=== PATIENT | female | born 1935 | race Caucasian/White ===

== ENCOUNTER 2023-08-29 21:00 | Inpatient (IN) ==
[2023-08-29] MEDS: Lactated Ringers 1000 ml BAG 1,000 ML IV ONE (21:58)
[2023-08-29] MEDS: Albuterol 2.5mg/3 ml (0.083%) NEB.SOLN INH ONE (22:05)
[2023-08-29 22:22] LABS: PCO2 Arterial 38 mmHg (35-45); PO2 Arterial 84 mmHg (80-100)
[2023-08-29 22:35] LABS: ABS Eosinophils 0.1 10^3/uL (0.0-0.5); ABS Lymphocytes 0.6 10^3/uL (1.0-4.8); ABS Monocytes 0.8 10^3/uL (0.0-0.9); ABS Neutrophils 5.5 10^3/uL (1.5-7.6); ABS Nucleated RBC 0.01 10^3/ul; Eosinophil % 1.2 %; Hematocrit 35.4 % (35-45); Hemoglobin 11.6 g/dL (11.5-14.3); Lymphocyte % 8.4 %; Mean Corpuscular Hemoglobin 28.8 pg (27-33); Mean Corpuscular Hgb Conc 32.8 g/dL (31-36); Mean Corpuscular Volume 87.9 fL (80-97); Mean Platelet Volume 8.8 fL (7.5-11.2); Nucleated Red Blood Cells % 0.1 %/100WBC (0.0-0.8); Platelet Count 373 10^3/uL (150-450); Red Blood Count 4.03 10^6/uL (3.63-4.92); Red Cell Distribution Width 15.6 % (12-17)
[2023-08-29 22:48] LABS: Albumin 3.6 g/dL (3.2-5.2); Albumin/Globulin Ratio 1.2 (1-3); C Reactive Protein 19.55 mg/L (<8.01); Calcium 8.2 mg/dL (8.6-10.3); Creatinine, Serum 0.58 mg/dL (0.51-0.95); Globulin 2.9 g/dL (2-4); Potassium 4.5 mmol/L (3.5-5.0); Total Bilirubin 0.5 mg/dL (0.2-1.0); Total Protein 6.5 g/dL (6.4-8.9); eGFR CKD-EPI 88.1 (>60)
[2023-08-30] MEDS: Iodixanol (CONTRAST) 320 MG/ML 100 ML SDV IV ONE
[2023-08-30] MEDS ORDERED: Polyethylene Glycol 3350 17 GM PACKET PO PRN (03:35)
[2023-08-30] MEDS ORDERED: Senna TAB 8.6 mg TAB PO PRN (03:35)
[2023-08-30] MEDS ORDERED: Ondansetron 4 mg VIAL 2 MG/ML 2 ml VIAL IV PRN (03:35)
[2023-08-30] MEDS: cefTRIAXone 1 gm/50 mL D5W 1 GM/50 ML BAG IV ONE (03:43)
[2023-08-30] MEDS: Azithromycin 500 mg/250 ml NS 500 MG/250 ML BAG IVPB ONE (04:57)
[2023-08-30 06:12] LABS: Urine Specific Gravity >1.050 (1.002-1.030)
[2023-08-30 06:15] LABS: High Sensitivity Troponin 1 Hr 7 pg/mL (<15); Urine Appearance Clear; Urine Bacteria Absent /HPF (Absent); Urine Bilirubin Negative (Negative); Urine Blood Negative (Negative); Urine Color Yellow; Urine Glucose Negative (Negative); Urine Ketones Negative (Negative); Urine Nitrite Negative (Negative); Urine Protein 1+ (>=30 mg/dL) (Negative); Urine Red Blood Cell Absent /HPF (0-Trace); Urine Squamous Epithelial Cell Present /HPF (Absent); Urine Urobilinogen Negative (Negative); Urine White Blood Cell Absent /HPF (0-Trace)
[2023-08-30] MEDS: Lactated Ringers 1000 ml BAG 1,000 ML IV ONE (07:12)
[2023-08-30] MEDS: Famotidine SUSP ORALSYR 8 MG/ML PO SCH (10:12)
[2023-08-30] MEDS: levETIRAcetam LIQ 500 MG/5 ML UDC PO SCH (10:12)
[2023-08-30] MEDS: Latanoprost 0.005% 2.5 ml BTL BOTH EYES SCH (15:33)
[2023-08-31] MEDS: cefTRIAXone 1 gm/50 mL D5W 1 GM/50 ML BAG IV SCH (05:08)
[2023-08-31] MEDS: Azithromycin 500 mg/250 ml NS 500 MG/250 ML BAG IVPB SCH (05:48)
[2023-08-31 06:18] LABS: ABS Lymphocytes 0.7 10^3/uL (1.0-4.8); ABS Monocytes 0.7 10^3/uL (0.0-0.9); ABS Neutrophils 4.1 10^3/uL (1.5-7.6); Eosinophil % 0.2 %; Hematocrit 34.3 % (35-45); Hemoglobin 11.5 g/dL (11.5-14.3); Lymphocyte % 12.2 %; Mean Corpuscular Hemoglobin 29.9 pg (27-33); Mean Corpuscular Hgb Conc 33.7 g/dL (31-36); Mean Corpuscular Volume 88.8 fL (80-97); Mean Platelet Volume 8.3 fL (7.5-11.2); Nucleated Red Blood Cells % 0.1 %/100WBC (0.0-0.8); Platelet Count 353 10^3/uL (150-450); Red Blood Count 3.86 10^6/uL (3.63-4.92); Red Cell Distribution Width 15.3 % (12-17); White Blood Count 5.5 10^3/uL (3.8-11.8)
[2023-08-31 06:48] LABS: Calcium 8.3 mg/dL (8.6-10.3); Creatinine, Serum 0.59 mg/dL (0.51-0.95); Potassium 4.5 mmol/L (3.5-5.0); eGFR CKD-EPI 87.7 (>60)
[2023-08-31] MEDS ORDERED: Senna TAB 8.6 mg TAB PEG TUBE PRN (08:04)
[2023-08-31] MEDS ORDERED: Polyethylene Glycol 3350 17 GM PACKET PEG TUBE PRN (08:04)
[2023-08-31] MEDS: Famotidine SUSP ORALSYR 8 MG/ML PEG TUBE SCH (10:51)
[2023-08-31] MEDS: levETIRAcetam LIQ 500 MG/5 ML UDC PEG TUBE SCH (10:51)
[2023-08-31] MEDS: Scopolamine 1 mg/72hr PATCH TRANSDERM SCH (13:52)
[2023-08-31 15:11] LABS: Magnesium 2.1 mg/dL (1.9-2.7)
[2023-08-31] MEDS ORDERED: Metoprolol Tartrate 5 mg VIAL 5 ml VIAL (1 mg/ml) IV PRN ×2 (16:11→16:30)
[2023-08-31] MEDS: Metoprolol Tartrate 5 mg VIAL 5 ml VIAL (1 mg/ml) IV PRN (16:54)
[2023-08-31] MEDS: Albuterol/Ipratropium NEB.SOL (2.5/0.5 MG) 3 ML NEB.SOLN INH ONE (17:25)
[2023-09-01 06:52] LABS: Calcium 8.1 mg/dL (8.6-10.3); Creatinine, Serum 0.53 mg/dL (0.51-0.95); Potassium 4.2 mmol/L (3.5-5.0)
[2023-09-01] MEDS: Levalbuterol 0.63MG/3ML NEB UNIT OF USE INH PRN (12:18)
[2023-09-01] MEDS: Acetylcysteine INHALATION SOL 200 MG/ML NEB.SOLN 10 ML INH ONE (12:18)
[2023-09-01] MEDS ORDERED: Sulfur Hexaflouride MICROSPHR 25 MG VIAL ONE (13:01)
[2023-09-01] MEDS: Sulfur Hexaflouride MICROSPHR 25 MG VIAL IV ONE (14:43)
[2023-09-01] MEDS: Furosemide 20 mg/2 ml IV VIAL IV ONE (17:04)
[2023-09-01] MEDS ORDERED: Acetylcysteine INH SOL (RT) 200 MG/ML 4 ML VIAL INH PRN (18:00)
[2023-09-02 07:04] LABS: Calcium 8.1 mg/dL (8.6-10.3); Creatinine, Serum 0.52 mg/dL (0.51-0.95); Potassium 3.9 mmol/L (3.5-5.0); eGFR CKD-EPI 90.4 (>60)
[2023-09-02] MEDS: KCL 10 MEQ/50 ML IVPREMIX 10 MEQ/50 ML BAG IV ONE (14:28)
[2023-09-03 06:42] LABS: Calcium 8.1 mg/dL (8.6-10.3); Creatinine, Serum 0.52 mg/dL (0.51-0.95); eGFR CKD-EPI 90.4 (>60)
[2023-09-04 13:17] LABS: Hematocrit 37.6 % (35-45); Hemoglobin 12.6 g/dL (11.5-14.3); Mean Corpuscular Hemoglobin 29.2 pg (27-33); Mean Corpuscular Hgb Conc 33.4 g/dL (31-36); Mean Corpuscular Volume 87.3 fL (80-97); Mean Platelet Volume 8.1 fL (7.5-11.2); Platelet Count 423 10^3/uL (150-450); Red Blood Count 4.31 10^6/uL (3.63-4.92); Red Cell Distribution Width 14.6 % (12-17); White Blood Count 6.8 10^3/uL (3.8-11.8)
[2023-09-04] MEDS: cefTRIAXone 1 gm/50 mL D5W 1 GM/50 ML BAG IV SCH (13:59)
[2023-09-05] MEDS: Metoprolol Tartrate 5 mg VIAL 5 ml VIAL (1 mg/ml) IV PRN (20:36)
[2023-09-08 10:00] VITALS: BP 132/91
== END 2023-09-08 13:57 | DRG 189 ==
LOC: ED 21:00 → EDHOLD 08-30 03:35 → SUATTDRO 08-30 03:35 → MED 08-30 07:42
PROVIDERS: ADMIT Internal Medicine; ATTEND Internal Medicine

== ENCOUNTER 2023-09-12 13:23 | Inpatient (IN) ==
[2023-09-12 14:09] LABS: ABS Basophils 0.1 10^3/uL (0.0-0.1); ABS Eosinophils 0.2 10^3/uL (0.0-0.5); ABS Lymphocytes 1.4 10^3/uL (1.0-4.8); ABS Monocytes 0.9 10^3/uL (0.0-0.9); ABS Neutrophils 11.2 10^3/uL (1.5-7.6); ABS Nucleated RBC 0.01 10^3/ul; Eosinophil % 1.4 %; Hematocrit 41.3 % (35-45); Hemoglobin 13.6 g/dL (11.5-14.3); Lymphocyte % 10.2 %; Mean Corpuscular Hemoglobin 28.7 pg (27-33); Mean Platelet Volume 8.4 fL (7.5-11.2); Platelet Count 428 10^3/uL (150-450); Red Blood Count 4.74 10^6/uL (3.63-4.92); Red Cell Distribution Width 14.9 % (12-17); White Blood Count 13.8 10^3/uL (3.8-11.8)
[2023-09-12 14:22] LABS: Activated Partial Thrombo Time 29.9 seconds (26.0-38.0); INR 1.05 (0.83-1.13)
[2023-09-12] MEDS: Iodixanol (CONTRAST) 320 MG/ML 100 ML SDV IV ONE (14:28)
[2023-09-12 14:54] LABS: Albumin 3.7 g/dL (3.2-5.2); Albumin/Globulin Ratio 1.3 (1-3); Calcium 8.7 mg/dL (8.6-10.3); Creatinine, Serum 0.65 mg/dL (0.51-0.95); Direct Bilirubin 0.1 mg/dL (0.03-0.18); Globulin 2.8 g/dL (2-4); HDL Cholesterol 34.9 mg/dL; Indirect Bilirubin 0.5 mg/dL (0.3-1.0); Potassium 4.8 mmol/L (3.5-5.0); Total Bilirubin 0.6 mg/dL (0.2-1.0); Total Protein 6.5 g/dL (6.4-8.9); eGFR CKD-EPI 85.7 (>60)
[2023-09-12] MEDS: Dexamethasone IV 4 MG/ML 5 ML VIAL (20 MG) IVPB ONE (15:33)
[2023-09-12 15:55] LABS: Venous Bicarbonate HCO3 28.1 mmol/L (24-28)
[2023-09-12] MEDS ORDERED: Zosyn per Pharmacy NOTE FOLLOW UP SCH (18:00)
[2023-09-12 19:06] LABS: Urine Appearance Clear; Urine Bacteria Absent /HPF (Absent); Urine Bilirubin Negative (Negative); Urine Blood Negative (Negative); Urine Color Yellow; Urine Glucose Negative (Negative); Urine Ketones Negative (Negative); Urine Nitrite Negative (Negative); Urine Protein 1+ (>=30 mg/dL) (Negative); Urine Red Blood Cell Trace(0-2/hpf) /HPF (0-Trace); Urine Specific Gravity >1.050 (1.002-1.030); Urine Squamous Epithelial Cell Present /HPF (Absent); Urine Urobilinogen 1+ (Negative); Urine White Blood Cell Trace(0-5/hpf) /HPF (0-Trace); Urine pH 7.5 (5.0-8.0)
[2023-09-12] MEDS: Piperacillin/Tazobac 3.375 BAG 3.375 GM/100 ML BAG IV ONE (19:20)
[2023-09-12] MEDS: NS 0.9% 1000 ml BAG 1,000 ML IV SCH (20:26)
[2023-09-12] MEDS: ZOSYN 3.375 GM Q8H per EXTENDED INFUSION IV SCH (23:36)
[2023-09-13] MEDS: Acetaminophen IV 1 GM/100ML 1,000 MG/100 ML BAG IV PRN (06:06)
[2023-09-13 06:22] LABS: ABS Lymphocytes 0.7 10^3/uL (1.0-4.8); ABS Monocytes 0.2 10^3/uL (0.0-0.9); ABS Neutrophils 9.6 10^3/uL (1.5-7.6); Hematocrit 39.1 % (35-45); Hemoglobin 13.1 g/dL (11.5-14.3); Lymphocyte % 6.7 %; Mean Corpuscular Hemoglobin 29.8 pg (27-33); Mean Corpuscular Hgb Conc 33.5 g/dL (31-36); Mean Corpuscular Volume 88.9 fL (80-97); Mean Platelet Volume 8.9 fL (7.5-11.2); Platelet Count 367 10^3/uL (150-450); Red Cell Distribution Width 14.6 % (12-17); White Blood Count 10.6 10^3/uL (3.8-11.8)
[2023-09-13 06:24] LABS: Calcium 8.1 mg/dL (8.6-10.3); Creatinine, Serum 0.65 mg/dL (0.51-0.95); Magnesium 2.1 mg/dL (1.9-2.7); Potassium 4.8 mmol/L (3.5-5.0); eGFR CKD-EPI 85.7 (>60)
[2023-09-13] MEDS: levETIRAcetam LIQ 500 MG/5 ML UDC FEED TUBE SCH (09:34)
[2023-09-13] MEDS: Latanoprost 0.005% 2.5 ml BTL BOTH EYES SCH (09:35)
[2023-09-13] MEDS: Famotidine SUSP ORALSYR 8 MG/ML FEED TUBE SCH (09:35)
[2023-09-13] MEDS: Sulfur Hexaflouride MICROSPHR 25 MG VIAL IV ONE (17:17)
[2023-09-13] MEDS: Albuterol/Ipratropium NEB.SOL (2.5/0.5 MG) 3 ML NEB.SOLN INH PRN (19:19)
[2023-09-15 10:34] LABS: Body Fluid Total Nucleated 231 /mcL
[2023-09-15 10:42] LABS: C Reactive Protein 17.67 mg/L (<8.01)
[2023-09-15 11:05] LABS: Body Fluid Appearance Cloudy; Body Fluid Color Yellow; Body Fluid Source Pleural Fluid
[2023-09-15 11:52] LABS: Body Fluid Mono 14 %; Body Fluid Total Cells Counted 200
[2023-09-15 16:10] VITALS: BP 152/100
[2023-09-16 11:07] LABS: Lactate Dehydrogenase, BF 206 U/L
[2023-09-16 12:06] LABS: Albumin, BF 1.7 g/dL; Fluid Type, Albumin PLEURAL FLUID; Fluid Type, Protein, Total PLEURAL FLUID; Glucose, BF 116 mg/dL; Total Protein, BF 2.5 g/dL
== END 2023-09-15 16:20 | DRG 70 ==
LOC: ED 13:23 → EDHOLD 13:23 → INTOOBSV 16:05 → SUATTDRO 16:05 → OBSVTOIN 16:05 → MED 19:35 → SUATTDRO 09-13 08:00
PROVIDERS: ADMIT Internal Medicine; ATTEND Hospitalist

== ENCOUNTER 2023-10-15 13:05 | Inpatient (IN) ==
[2023-10-15 13:54] LABS: ABS Eosinophils 0.1 10^3/uL (0.0-0.5); ABS Lymphocytes 1.1 10^3/uL (1.0-4.8); ABS Monocytes 0.5 10^3/uL (0.0-0.9); ABS Neutrophils 5.5 10^3/uL (1.5-7.6); ABS Nucleated RBC 0.01 10^3/ul; Eosinophil % 1.9 %; Hematocrit 37.7 % (35-45); Hemoglobin 12.6 g/dL (11.5-14.3); Lymphocyte % 14.8 %; Mean Corpuscular Hemoglobin 29.3 pg (27-33); Mean Corpuscular Hgb Conc 33.4 g/dL (31-36); Mean Corpuscular Volume 87.9 fL (80-97); Mean Platelet Volume 8.7 fL (7.5-11.2); Nucleated Red Blood Cells % 0.2 %/100WBC (0.0-0.8); Platelet Count 405 10^3/uL (150-450); Red Blood Count 4.29 10^6/uL (3.63-4.92); Red Cell Distribution Width 14.5 % (12-17); White Blood Count 7.2 10^3/uL (3.8-11.8)
[2023-10-15 14:21] LABS: Activated Partial Thrombo Time 33.9 seconds (26.0-38.0); INR 1.05 (0.83-1.13)
[2023-10-15 14:28] LABS: Albumin 3.8 g/dL (3.2-5.2); Albumin/Globulin Ratio 1.4 (1-3); Calcium 9.1 mg/dL (8.6-10.3); Creatinine, Serum 0.61 mg/dL (0.51-0.95); Globulin 2.8 g/dL (2-4); Potassium 4.5 mmol/L (3.5-5.0); Total Bilirubin 0.6 mg/dL (0.2-1.0); Total Protein 6.6 g/dL (6.4-8.9)
[2023-10-15] MEDS: Glycerin ADULT 2.4 gm SUPP PR ONE (18:24)
[2023-10-15 18:32] LABS: Hematocrit 35.6 % (35-45); Hemoglobin 11.8 g/dL (11.5-14.3)
[2023-10-15] MEDS: Pantoprazole VIAL 40 MG VIAL IV ONE (20:20)
[2023-10-15] MEDS: Lactated Ringers 1000 ml BAG 1,000 ML IV SCH (22:57)
[2023-10-16 00:52] LABS: ABS Eosinophils 0.1 10^3/uL (0.0-0.5); ABS Lymphocytes 1.1 10^3/uL (1.0-4.8); ABS Monocytes 0.8 10^3/uL (0.0-0.9); Eosinophil % 1.6 %; Hematocrit 32.1 % (35-45); Lymphocyte % 15.9 %; Mean Corpuscular Hemoglobin 30.1 pg (27-33); Mean Corpuscular Hgb Conc 34.3 g/dL (31-36); Mean Corpuscular Volume 87.7 fL (80-97); Mean Platelet Volume 8.6 fL (7.5-11.2); Platelet Count 366 10^3/uL (150-450); Red Blood Count 3.66 10^6/uL (3.63-4.92); Red Cell Distribution Width 14.7 % (12-17)
[2023-10-16 05:31] LABS: ABS Basophils 0.1 10^3/uL (0.0-0.1); ABS Eosinophils 0.1 10^3/uL (0.0-0.5); ABS Monocytes 0.8 10^3/uL (0.0-0.9); ABS Neutrophils 7.1 10^3/uL (1.5-7.6); ABS Nucleated RBC 0.01 10^3/ul; Eosinophil % 1.1 %; Hemoglobin 10.6 g/dL (11.5-14.3); Mean Corpuscular Hemoglobin 29.1 pg (27-33); Mean Corpuscular Hgb Conc 33.2 g/dL (31-36); Mean Corpuscular Volume 87.7 fL (80-97); Mean Platelet Volume 8.6 fL (7.5-11.2); Nucleated Red Blood Cells % 0.1 %/100WBC (0.0-0.8); Platelet Count 356 10^3/uL (150-450); Red Blood Count 3.64 10^6/uL (3.63-4.92); Red Cell Distribution Width 14.8 % (12-17)
[2023-10-16 06:21] LABS: Calcium 8.5 mg/dL (8.6-10.3); Creatinine, Serum 0.61 mg/dL (0.51-0.95); Potassium 4.5 mmol/L (3.5-5.0)
[2023-10-16] MEDS: Pantoprazole VIAL 40 MG VIAL IV SCH (11:06)
[2023-10-16] MEDS: levETIRAcetam LIQ 500 MG/5 ML UDC FEED TUBE SCH (11:06)
[2023-10-16 11:42] LABS: Magnesium 1.7 mg/dL (1.9-2.7)
[2023-10-16] MEDS: Magnesium Sulfate IV 1GM/100ML 1 GM/100 ML BAG IV ONE (15:48)
[2023-10-16] MEDS: Magnesium Sulfate 2 gm BAG 2 GM/50 ML BAG IVPB ONE (16:36)
[2023-10-16] MEDS: Iohexol 350 (CONTRAST) 500 ML MDV IV ONE (19:20)
[2023-10-17 00:07] LABS: Hematocrit 30.3 % (35-45); Hemoglobin 10.3 g/dL (11.5-14.3)
[2023-10-17 06:15] LABS: ABS Eosinophils 0.1 10^3/uL (0.0-0.5); ABS Monocytes 0.5 10^3/uL (0.0-0.9); ABS Neutrophils 2.9 10^3/uL (1.5-7.6); Hematocrit 32.3 % (35-45); Hemoglobin 10.6 g/dL (11.5-14.3); Lymphocyte % 22.1 %; Mean Corpuscular Hemoglobin 28.9 pg (27-33); Mean Corpuscular Hgb Conc 32.9 g/dL (31-36); Mean Corpuscular Volume 87.9 fL (80-97); Mean Platelet Volume 8.8 fL (7.5-11.2); Nucleated Red Blood Cells % 0.1 %/100WBC (0.0-0.8); Platelet Count 337 10^3/uL (150-450); Red Blood Count 3.67 10^6/uL (3.63-4.92); Red Cell Distribution Width 15.1 % (12-17); White Blood Count 4.6 10^3/uL (3.8-11.8)
[2023-10-17 06:33] LABS: Calcium 8.2 mg/dL (8.6-10.3); Creatinine, Serum 0.68 mg/dL (0.51-0.95); Magnesium 2.5 mg/dL (1.9-2.7); eGFR CKD-EPI 84.8 (>60)
[2023-10-17] MEDS: Polyethylene Glycol 3350 17 GM PACKET FEED TUBE SCH (08:42)
[2023-10-18 05:39] LABS: ABS Eosinophils 0.2 10^3/uL (0.0-0.5); ABS Lymphocytes 1.1 10^3/uL (1.0-4.8); ABS Monocytes 0.7 10^3/uL (0.0-0.9); ABS Neutrophils 4.1 10^3/uL (1.5-7.6); ABS Nucleated RBC 0.01 10^3/ul; Eosinophil % 2.5 %; Hematocrit 32.7 % (35-45); Hemoglobin 10.7 g/dL (11.5-14.3); Lymphocyte % 17.5 %; Mean Corpuscular Hemoglobin 28.7 pg (27-33); Mean Corpuscular Hgb Conc 32.7 g/dL (31-36); Mean Corpuscular Volume 87.6 fL (80-97); Mean Platelet Volume 8.8 fL (7.5-11.2); Nucleated Red Blood Cells % 0.1 %/100WBC (0.0-0.8); Platelet Count 364 10^3/uL (150-450); Red Blood Count 3.74 10^6/uL (3.63-4.92); Red Cell Distribution Width 14.8 % (12-17)
[2023-10-18 05:58] LABS: Calcium 8.2 mg/dL (8.6-10.3); Creatinine, Serum 0.59 mg/dL (0.51-0.95); Magnesium 1.9 mg/dL (1.9-2.7); Potassium 4.2 mmol/L (3.5-5.0); eGFR CKD-EPI 87.7 (>60)
[2023-10-18 09:46] VITALS: BP 125/98
[2023-10-18] MEDS ORDERED: Lansoprazole SUSP ORALSYR 3 MG/ML PO SCH (21:00)
[2023-10-18] MEDS ORDERED: Enoxaparin 60 MG/0.6 ML SYR SUBCUT SCH (21:00)
== END 2023-10-18 13:13 | DRG 378 ==
LOC: ED 13:05 → EDHOLD 13:05 → SUATTDRO 21:04 → MEDTELE 10-16 14:04
PROVIDERS: ADMIT Internal Medicine; ATTEND Student in an Organized Health Care Education/Training Program

== ENCOUNTER 2023-12-21 10:47 | Inpatient (IN) ==
[2023-12-21 11:32] LABS: ABS Lymphocytes 0.9 10^3/uL (1.0-4.8); ABS Monocytes 0.9 10^3/uL (0.0-0.9); ABS Neutrophils 6.6 10^3/uL (1.5-7.6); ABS Nucleated RBC 0.01 10^3/ul; Hematocrit 34.5 % (35-45); Hemoglobin 11.6 g/dL (11.5-14.3); Lymphocyte % 10.2 %; Mean Corpuscular Hemoglobin 29.7 pg (27-33); Mean Corpuscular Hgb Conc 33.8 g/dL (31-36); Mean Corpuscular Volume 87.9 fL (80-97); Nucleated Red Blood Cells % 0.1 %/100WBC (0.0-0.8); Platelet Count 297 10^3/uL (150-450); Red Blood Count 3.92 10^6/uL (3.63-4.92); Red Cell Distribution Width 15.2 % (12-17); White Blood Count 8.4 10^3/uL (3.8-11.8)
[2023-12-21 11:48] LABS: Activated Partial Thrombo Time 25.8 seconds (26.0-38.0); INR 1.14 (0.85-1.14)
[2023-12-21] MEDS: methylPREDNISolone SOD SUCC 125 mg 2 ML VIAL IV ONE (11:54)
[2023-12-21] MEDS: Acetaminophen IV 1 GM/100ML 1,000 MG/100 ML BAG IV ONE (11:54)
[2023-12-21] MEDS: Azithromycin 500 mg/250 ml NS 500 MG/250 ML BAG IVPB ONE (12:11)
[2023-12-21 12:47] LABS: Albumin 3.6 g/dL (3.2-5.2); Albumin/Globulin Ratio 1.3 (1-3); C Reactive Protein 20.85 mg/L (<8.01); Calcium 8.1 mg/dL (8.6-10.3); Creatinine, Serum 0.82 mg/dL (0.51-0.95); Globulin 2.7 g/dL (2-4); Total Bilirubin 0.4 mg/dL (0.2-1.0); Total Protein 6.3 g/dL (6.4-8.9); eGFR CKD-EPI 69.6 (>60)
[2023-12-21 12:48] LABS: High Sensitivity Troponin 1 Hr 12 pg/mL (<15)
[2023-12-21 12:53] LABS: Potassium 4.4 mmol/L (3.5-5.0)
[2023-12-21] MEDS: cefTRIAXone 1 gm/50 mL D5W 1 GM/50 ML BAG IV ONE (12:54)
[2023-12-21] MEDS: NS 0.9% 500 ml BAG 500 ML IV ONE (13:31)
[2023-12-21] MEDS ORDERED: Zosyn per Pharmacy NOTE FOLLOW UP SCH (14:00)
[2023-12-21] MEDS ORDERED: Metoprolol Tartrate 5 mg VIAL 5 ml VIAL (1 mg/ml) IV PRN (14:04)
[2023-12-21] MEDS: ZOSYN 3.375 GM x ONE DOSE over 30 miuntes IV (14:18)
[2023-12-21] MEDS: metroNIDAZOLE IV 500 MG/100ML 500 MG/100 ML BAG IVPB ONE (14:42)
[2023-12-21] MEDS: NS 0.9% 1000 ml BAG 1,000 ML IV SCH (14:42)
[2023-12-21] MEDS ORDERED: Vancomycin per Pharmacy 1 EA NOTE FOLLOW UP SCH (15:00)
[2023-12-21] MEDS: Remdesivir 100 mg Vial 200 MG in NS 0.9% 250 ml 210 ML IV ONE (15:46)
[2023-12-21] MEDS: Dexamethasone IV 4 MG/ML VIAL 1 ml VIAL IV SLOW PU SCH (17:07)
[2023-12-21] MEDS: Lactated Ringers 1000 ml BAG 1,000 ML IV SCH (17:11)
[2023-12-21] MEDS: Vancomycin 1000 MG in NS 0.9% 250 ML IVPB ONE (18:05)
[2023-12-21] MEDS: ZOSYN 3.375 GM Q8H per EXTENDED INFUSION IV SCH (19:06)
[2023-12-21] MEDS: Famotidine IV 10 MG/ML 2 ml VIAL (20 mg) IV SLOW PU SCH (20:26)
[2023-12-21] MEDS: Acetaminophen IV 1 GM/100ML 1,000 MG/100 ML BAG IV PRN (22:39)
[2023-12-22] MEDS: Metoprolol Tartrate 5 mg VIAL 5 ml VIAL (1 mg/ml) IV PRN (00:12)
[2023-12-22 04:04] LABS: ABS Lymphocytes 0.6 10^3/uL (1.0-4.8); ABS Monocytes 0.3 10^3/uL (0.0-0.9); ABS Neutrophils 8.6 10^3/uL (1.5-7.6); ABS Nucleated RBC 0.01 10^3/ul; Hematocrit 29.7 % (35-45); Hemoglobin 10.1 g/dL (11.5-14.3); Lymphocyte % 5.9 %; Mean Platelet Volume 8.8 fL (7.5-11.2); Nucleated Red Blood Cells % 0.1 %/100WBC (0.0-0.8); Platelet Count 252 10^3/uL (150-450); Red Blood Count 3.37 10^6/uL (3.63-4.92); Red Cell Distribution Width 15.5 % (12-17); White Blood Count 9.5 10^3/uL (3.8-11.8)
[2023-12-22 04:53] LABS: Albumin 2.9 g/dL (3.2-5.2); Albumin/Globulin Ratio 1.3 (1-3); Calcium 7.3 mg/dL (8.6-10.3); Creatinine, Serum 0.67 mg/dL (0.51-0.95); Globulin 2.3 g/dL (2-4); Magnesium 1.7 mg/dL (1.9-2.7); Phosphorus 4.5 mg/dL (2.5-5.0); Potassium 3.4 mmol/L (3.5-5.0); Total Bilirubin 0.3 mg/dL (0.2-1.0); Total Protein 5.2 g/dL (6.4-8.9); eGFR CKD-EPI 85.1 (>60)
[2023-12-22] MEDS: Magnesium Sulfate 2 gm BAG 2 GM/50 ML BAG IVPB ONE (06:28)
[2023-12-22] MEDS: KCL 20 MEQ/100 ML IVPREMIX 20 MEQ/100 ML BAG IV SCH (07:21)
[2023-12-22] MEDS: Magnesium Sulfate IV 1GM/100ML 1 GM/100 ML BAG IV ONE (09:45)
[2023-12-22] MEDS: Vancomycin 1000 MG in NS 0.9% 250 ML IVPB SCH (12:57)
[2023-12-22] MEDS: Azithromycin 500 mg/250 ml NS 500 MG/250 ML BAG IVPB SCH (17:24)
[2023-12-22] MEDS: Erythromycin OPTH OINT APPLIC OINT LEFT EYE SCH (21:01)
[2023-12-22] MEDS: Remdesivir 100 mg Vial 100 MG in NS 0.9% 250 ml 230 ML IV SCH (21:35)
[2023-12-23 10:16] LABS: ABS Lymphocytes 0.6 10^3/uL (1.0-4.8); ABS Monocytes 0.4 10^3/uL (0.0-0.9); ABS Neutrophils 5.1 10^3/uL (1.5-7.6); Hematocrit 31.5 % (35-45); Hemoglobin 10.2 g/dL (11.5-14.3); Lymphocyte % 10.5 %; Mean Corpuscular Hemoglobin 28.3 pg (27-33); Mean Corpuscular Hgb Conc 32.4 g/dL (31-36); Mean Corpuscular Volume 87.3 fL (80-97); Platelet Count 272 10^3/uL (150-450); Red Blood Count 3.61 10^6/uL (3.63-4.92); Red Cell Distribution Width 15.5 % (12-17); White Blood Count 6.2 10^3/uL (3.8-11.8)
[2023-12-23 11:00] LABS: Calcium 7.3 mg/dL (8.6-10.3); Creatinine, Serum 0.63 mg/dL (0.51-0.95); Magnesium 2.2 mg/dL (1.9-2.7); Potassium 3.9 mmol/L (3.5-5.0); eGFR CKD-EPI 86.3 (>60)
[2023-12-23] MEDS: levETIRAcetam LIQ 500 MG/5 ML UDC FEED TUBE SCH (21:39)
[2023-12-24 06:58] LABS: ABS Lymphocytes 0.7 10^3/uL (1.0-4.8); ABS Monocytes 0.4 10^3/uL (0.0-0.9); ABS Neutrophils 3.4 10^3/uL (1.5-7.6); Hematocrit 29.4 % (35-45); Hemoglobin 9.8 g/dL (11.5-14.3); Lymphocyte % 14.9 %; Mean Corpuscular Hemoglobin 29.4 pg (27-33); Mean Corpuscular Hgb Conc 33.5 g/dL (31-36); Mean Corpuscular Volume 87.8 fL (80-97); Mean Platelet Volume 8.6 fL (7.5-11.2); Nucleated Red Blood Cells % 0.1 %/100WBC (0.0-0.8); Platelet Count 256 10^3/uL (150-450); Red Blood Count 3.35 10^6/uL (3.63-4.92); Red Cell Distribution Width 15.5 % (12-17); White Blood Count 4.6 10^3/uL (3.8-11.8)
[2023-12-24 07:35] LABS: Calcium 7.2 mg/dL (8.6-10.3); Creatinine, Serum 0.66 mg/dL (0.51-0.95); Potassium 3.7 mmol/L (3.5-5.0); eGFR CKD-EPI 85.4 (>60)
[2023-12-24 12:32] LABS: Creatinine, Serum 0.69 mg/dL (0.51-0.95); Vancomycin Trough 9.9 mcg/mL; eGFR CKD-EPI 84.5 (>60)
[2023-12-24] MEDS: Vancomycin Trough Check NOTE FOLLOW UP ONE (12:33)
[2023-12-24] MEDS: levETIRAcetam LIQ 500 MG/5 ML UDC FEED TUBE SCH (22:43)
[2023-12-25 05:54] LABS: ABS Lymphocytes 0.7 10^3/uL (1.0-4.8); ABS Monocytes 0.3 10^3/uL (0.0-0.9); ABS Neutrophils 2.9 10^3/uL (1.5-7.6); Eosinophil % 0.1 %; Hematocrit 31.8 % (35-45); Hemoglobin 10.7 g/dL (11.5-14.3); Lymphocyte % 18.2 %; Mean Corpuscular Hemoglobin 29.1 pg (27-33); Mean Corpuscular Hgb Conc 33.6 g/dL (31-36); Mean Corpuscular Volume 86.5 fL (80-97); Mean Platelet Volume 8.2 fL (7.5-11.2); Nucleated Red Blood Cells % 0.1 %/100WBC (0.0-0.8); Platelet Count 264 10^3/uL (150-450); Red Blood Count 3.68 10^6/uL (3.63-4.92); Red Cell Distribution Width 15.5 % (12-17)
[2023-12-25 07:46] LABS: Calcium 7.3 mg/dL (8.6-10.3); Creatinine, Serum 0.62 mg/dL (0.51-0.95); Magnesium 1.8 mg/dL (1.9-2.7); Potassium 3.7 mmol/L (3.5-5.0); eGFR CKD-EPI 86.1 (>60)
[2023-12-25] MEDS: levETIRAcetam LIQ 500 MG/5 ML UDC J TUBE SCH (09:29)
[2023-12-25] MEDS: Magnesium Sulfate 2 gm BAG 2 GM/50 ML BAG IVPB ONE (18:07)
[2023-12-26] MEDS: Vancomycin 750 MG in NS 0.9% 250 ML IVPB SCH (00:09)
[2023-12-26 06:35] LABS: Hematocrit 32.7 % (35-45); Hemoglobin 10.8 g/dL (11.5-14.3); Mean Corpuscular Hemoglobin 28.7 pg (27-33); Mean Platelet Volume 8.2 fL (7.5-11.2); Platelet Count 309 10^3/uL (150-450); Red Blood Count 3.76 10^6/uL (3.63-4.92); Red Cell Distribution Width 15.1 % (12-17); White Blood Count 6.9 10^3/uL (3.8-11.8)
[2023-12-26 06:52] LABS: Calcium 7.2 mg/dL (8.6-10.3); Creatinine, Serum 0.65 mg/dL (0.51-0.95); Magnesium 2.2 mg/dL (1.9-2.7); Potassium 3.9 mmol/L (3.5-5.0); eGFR CKD-EPI 85.2 (>60)
[2023-12-26 09:37] VITALS: BP 139/90
[2023-12-27] MEDS ORDERED: Vancomycin Trough Check NOTE FOLLOW UP ONE (11:30)
== END 2023-12-26 12:40 | DRG 871 ==
LOC: ED 10:47 → EDHOLD 13:38 → ICU 15:46 → MED 16:25
PROVIDERS: ADMIT Student in an Organized Health Care Education/Training Program; ATTEND Internal Medicine

== ENCOUNTER 2023-12-28 15:22 | Inpatient (IN) ==
[2023-12-28 16:18] LABS: ABS Eosinophils 0.2 10^3/uL (0.0-0.5); ABS Lymphocytes 0.9 10^3/uL (1.0-4.8); ABS Nucleated RBC 0.01 10^3/ul; Eosinophil % 1.4 %; Hematocrit 38.3 % (35-45); Hemoglobin 12.5 g/dL (11.5-14.3); Lymphocyte % 8.2 %; Mean Corpuscular Hemoglobin 28.3 pg (27-33); Mean Corpuscular Hgb Conc 32.8 g/dL (31-36); Mean Corpuscular Volume 86.3 fL (80-97); Mean Platelet Volume 8.1 fL (7.5-11.2); Nucleated Red Blood Cells % 0.1 %/100WBC (0.0-0.8); Platelet Count 425 10^3/uL (150-450); Red Blood Count 4.44 10^6/uL (3.63-4.92); Red Cell Distribution Width 15.7 % (12-17)
[2023-12-28 16:25] LABS: Activated Partial Thrombo Time 29.9 seconds (26.0-38.0); INR 1.1 (0.85-1.14)
[2023-12-28 16:30] LABS: Urine Appearance Clear; Urine Bilirubin Negative (Negative); Urine Blood Negative (Negative); Urine Color Yellow; Urine Glucose Negative (Negative); Urine Ketones Negative (Negative); Urine Nitrite Negative (Negative); Urine Protein Trace (Negative); Urine Specific Gravity 1.017 (1.002-1.030); Urine Urobilinogen 1+ (Negative); Urine pH 6.5 (5.0-8.0)
[2023-12-28 16:44] LABS: High Sens Troponin Baseline 10 pg/mL (<15)
[2023-12-28 16:47] LABS: Urine Bacteria 1+ /HPF (Absent); Urine Red Blood Cell Trace(0-2/hpf) /HPF (0-Trace); Urine Squamous Epithelial Cell Present /HPF (Absent); Urine White Blood Cell 3+(>20/hpf) /HPF (0-Trace)
[2023-12-28 17:08] LABS: ALT 50 U/L (7-52); Albumin 3.1 g/dL (3.2-5.2); Albumin/Globulin Ratio 1.1 (1-3); Alkaline Phosphatase 98 U/L (35-149); Anion Gap 6 mmol/L (2-16); Blood Urea Nitrogen 29 mg/dL (6-24); C Reactive Protein 58.82 mg/L (<8.01); CO2 Carbon Dioxide 29 mmol/L (22-32); Calcium 7.8 mg/dL (8.6-10.3); Chloride 102 mmol/L (101-111); Creatinine, Serum 0.63 mg/dL (0.51-0.95); Globulin 2.7 g/dL (2-4); Glucose 105 mg/dL (70-100); Sodium 137 mmol/L (135-145); Total Bilirubin 0.7 mg/dL (0.2-1.0); Total Protein 5.8 g/dL (6.4-8.9); eGFR CKD-EPI 85.8 (>60)
[2023-12-28 17:41] LABS: Potassium Redraw 4.7 mmol/L (3.5-5.0)
[2023-12-28] MEDS: Piperacillin/Tazobac 3.375 BAG 3.375 GM/100 ML BAG IV ONE (17:53)
[2023-12-28] MEDS: Lactated Ringers 1000 ml BAG 1,000 ML IV ONE (18:27)
[2023-12-28 19:47] LABS: Magnesium 2.1 mg/dL (1.9-2.7)
[2023-12-28] MEDS: cefTRIAXone 1 gm/50 mL D5W 1 GM/50 ML BAG IV SCH (21:55)
[2023-12-28] MEDS: Lactated Ringers 1000 ml BAG 1,000 ML IV SCH (21:55)
[2023-12-28] MEDS: Heparin 5000 UNITS/ML 1 mL VIAL SUBCUT SCH (21:55)
[2023-12-28] MEDS: levETIRAcetam LIQ 500 MG/5 ML UDC FEED TUBE SCH (21:55)
[2023-12-29 06:31] LABS: Anion Gap 9 mmol/L (2-16); Blood Urea Nitrogen 20 mg/dL (6-24); CO2 Carbon Dioxide 24 mmol/L (22-32); Calcium 7.5 mg/dL (8.6-10.3); Chloride 105 mmol/L (101-111); Creatinine, Serum 0.69 mg/dL (0.51-0.95); Glucose 74 mg/dL (70-100); Potassium 4.2 mmol/L (3.5-5.0); Sodium 138 mmol/L (135-145); eGFR CKD-EPI 83.9 (>60)
[2023-12-29 06:32] LABS: ABS Eosinophils 0.2 10^3/uL (0.0-0.5); ABS Lymphocytes 0.9 10^3/uL (1.0-4.8); ABS Monocytes 0.8 10^3/uL (0.0-0.9); ABS Neutrophils 6.6 10^3/uL (1.5-7.6); Eosinophil % 2.1 %; Hematocrit 37.6 % (35-45); Lymphocyte % 10.3 %; Mean Corpuscular Hemoglobin 27.8 pg (27-33); Mean Corpuscular Hgb Conc 31.8 g/dL (31-36); Mean Corpuscular Volume 87.5 fL (80-97); Mean Platelet Volume 7.9 fL (7.5-11.2); Platelet Count 358 10^3/uL (150-450); Red Cell Distribution Width 15.4 % (12-17); White Blood Count 8.5 10^3/uL (3.8-11.8)
[2023-12-29] MEDS: levETIRAcetam LIQ 500 MG/5 ML UDC J TUBE SCH (10:07)
[2023-12-29] MEDS: Polyethylene Glycol 3350 17 GM PACKET FEED TUBE SCH (10:14)
[2023-12-29] MEDS: Famotidine SUSP ORALSYR 8 MG/ML FEED TUBE SCH (10:14)
[2023-12-29 11:33] LABS: TSH Ultra Thyroid Stim Horm 1.52 mcIU/mL (0.34-5.60)
[2023-12-29 11:44] LABS: Folate 19.49 ng/mL (5.90-24.80)
[2023-12-29 11:45] LABS: Vitamin B12 > 1450 pg/mL (180-914)
[2023-12-29] MEDS: cefTRIAXone 2 gm/50 mL D5W 2 GM/50 ML BAG IV SCH (14:10)
[2023-12-29] MEDS: Vancomycin 1,000 MG in NS 0.9% 250 ml 250 ML IVPB ONE (17:18)
[2023-12-29] MEDS ORDERED: Vancomycin per Pharmacy 1 EA NOTE FOLLOW UP PRN (18:35)
[2023-12-29] MEDS: levETIRAcetam 500 MG IVPREMIX 500 MG/100 ML BAG IV SCH (23:36)
[2023-12-30] MEDS ORDERED: Metoprolol Tartrate 5 mg VIAL 5 ml VIAL (1 mg/ml) IV SCH
[2023-12-30] MEDS: Metoprolol Tartrate 5 mg VIAL 5 ml VIAL (1 mg/ml) IV SCH ×2 (00:03→08:53)
[2023-12-30] MEDS: Metoprolol Tartrate 5 mg VIAL 5 ml VIAL (1 mg/ml) ONE (00:18)
[2023-12-30] MEDS: Magnesium Hydroxide LIQ 30 ML UDC J TUBE ONE (01:01)
[2023-12-30] MEDS: Vancomycin 750 MG in NS 0.9% 250 ML IVPB SCH (05:32)
[2023-12-30 06:35] LABS: ABS Eosinophils 0.1 10^3/uL (0.0-0.5); ABS Lymphocytes 0.7 10^3/uL (1.0-4.8); ABS Monocytes 0.8 10^3/uL (0.0-0.9); ABS Neutrophils 6.5 10^3/uL (1.5-7.6); Eosinophil % 1.4 %; Hematocrit 32.5 % (35-45); Hemoglobin 11.1 g/dL (11.5-14.3); Lymphocyte % 8.6 %; Mean Corpuscular Hemoglobin 29.5 pg (27-33); Mean Corpuscular Hgb Conc 34.1 g/dL (31-36); Mean Corpuscular Volume 86.5 fL (80-97); Platelet Count 365 10^3/uL (150-450); Red Blood Count 3.76 10^6/uL (3.63-4.92); Red Cell Distribution Width 15.1 % (12-17); White Blood Count 8.1 10^3/uL (3.8-11.8)
[2023-12-30 07:34] LABS: Calcium 7.3 mg/dL (8.6-10.3); Creatinine, Serum 0.57 mg/dL (0.51-0.95); Magnesium 1.8 mg/dL (1.9-2.7); eGFR CKD-EPI 87.9 (>60)
[2023-12-30] MEDS ORDERED: Sulfur Hexaflouride MICROSPHR 25 MG VIAL IV PRN (09:01)
[2023-12-30] MEDS: levETIRAcetam IV 250 MG in NS 0.9% 100 ml BAG 100 ML IVPB SCH (09:47)
[2023-12-30] MEDS: Magnesium Sulfate 2 gm BAG 2 GM/50 ML BAG IVPB ONE (10:36)
[2023-12-30] MEDS: Lactated Ringers 1000 ml BAG 1,000 ML IV SCH (13:20)
[2023-12-30] MEDS: Famotidine IV 10 MG/ML 2 ml VIAL (20 mg) IV SLOW PU SCH (21:15)
[2023-12-30] MEDS: Magnesium Hydroxide LIQ 30 ML UDC G TUBE ONE (21:59)
[2023-12-31] MEDS: Lactated Ringers 1000 ml BAG 1,000 ML IV ONE (01:21)
[2023-12-31 07:25] LABS: ABS Eosinophils 0.1 10^3/uL (0.0-0.5); ABS Lymphocytes 0.5 10^3/uL (1.0-4.8); ABS Monocytes 0.7 10^3/uL (0.0-0.9); ABS Neutrophils 5.2 10^3/uL (1.5-7.6); ABS Nucleated RBC 0.01 10^3/ul; Eosinophil % 1.3 %; Hematocrit 35.5 % (35-45); Hemoglobin 11.3 g/dL (11.5-14.3); Lymphocyte % 7.9 %; Mean Corpuscular Hemoglobin 28.2 pg (27-33); Mean Corpuscular Hgb Conc 31.7 g/dL (31-36); Mean Corpuscular Volume 88.9 fL (80-97); Nucleated Red Blood Cells % 0.1 %/100WBC (0.0-0.8); Platelet Count 342 10^3/uL (150-450); Red Cell Distribution Width 15.7 % (12-17); White Blood Count 6.6 10^3/uL (3.8-11.8)
[2023-12-31 07:46] LABS: Calcium 7.5 mg/dL (8.6-10.3); Creatinine, Serum 0.55 mg/dL (0.51-0.95); Potassium 4.3 mmol/L (3.5-5.0); Vancomycin Trough 14.5 mcg/mL; eGFR CKD-EPI 88.7 (>60)
[2023-12-31] MEDS: Vancomycin Trough Check NOTE FOLLOW UP ONE (08:34)
[2023-12-31] MEDS ORDERED: Polyethylene Glycol 3350 17 GM PACKET G TUBE PRN (09:43)
[2023-12-31 10:04] LABS: Magnesium 2.2 mg/dL (1.9-2.7)
[2023-12-31] MEDS ORDERED: Magnesium Hydroxide LIQ 30 ML UDC G TUBE PRN (13:18)
[2023-12-31] MEDS: ceFAZolin 2 GM PREMIX 2 GM/50 ML BAG IV SCH (15:22)
[2023-12-31] MEDS: guaiFENesin 100 mg/5 ml LIQ unit dose cup PO PRN (18:11)
[2023-12-31] MEDS: levETIRAcetam LIQ 500 MG/5 ML UDC G TUBE SCH (21:06)
[2024-01-01] MEDS: Metoprolol Tartrate 5 mg VIAL 5 ml VIAL (1 mg/ml) IV ONE ×2 (01:33→04:07)
[2024-01-01 06:47] LABS: Hematocrit 32.9 % (35-45); Mean Corpuscular Hemoglobin 29.3 pg (27-33); Mean Corpuscular Hgb Conc 33.5 g/dL (31-36); Mean Corpuscular Volume 87.5 fL (80-97); Mean Platelet Volume 7.6 fL (7.5-11.2); Platelet Count 349 10^3/uL (150-450); Red Blood Count 3.75 10^6/uL (3.63-4.92); Red Cell Distribution Width 15.4 % (12-17); White Blood Count 4.9 10^3/uL (3.8-11.8)
[2024-01-01 07:23] LABS: Creatinine, Serum 0.68 mg/dL (0.51-0.95); Potassium 3.6 mmol/L (3.5-5.0); eGFR CKD-EPI 84.2 (>60)
[2024-01-01 07:46] LABS: Magnesium 1.8 mg/dL (1.9-2.7)
[2024-01-01] MEDS ORDERED: levETIRAcetam LIQ 500 MG/5 ML UDC PO SCH (09:00)
[2024-01-01] MEDS: levETIRAcetam LIQ 500 MG/5 ML UDC G TUBE SCH (10:36)
[2024-01-01] MEDS: Lactated Ringers 1000 ml BAG 1,000 ML IV SCH (12:13)
[2024-01-01] MEDS: Magnesium Sulfate 2 gm BAG 2 GM/50 ML BAG IVPB ONE (12:14)
[2024-01-01] MEDS: Linezolid 600 MG IVPREMIX(*) 600 MG/300 ML BAG IVPB SCH (13:52)
[2024-01-02] MEDS ORDERED: Vancomycin Trough Check NOTE FOLLOW UP ONE (05:30)
[2024-01-02] MEDS: levETIRAcetam LIQ 500 MG/5 ML UDC G TUBE SCH (09:57)
[2024-01-02] MEDS: Famotidine SUSP ORALSYR 8 MG/ML FEED TUBE SCH (10:02)
[2024-01-02] MEDS: Lactated Ringers 1000 ml BAG 500 ML IV ONE (10:48)
[2024-01-03] MEDS: Furosemide 20 mg/2 ml IV VIAL IV SLOW PU ONE (10:27)
[2024-01-03 13:26] LABS: ABS Eosinophils 0.1 10^3/uL (0.0-0.5); ABS Lymphocytes 0.8 10^3/uL (1.0-4.8); ABS Monocytes 0.6 10^3/uL (0.0-0.9); ABS Neutrophils 3.5 10^3/uL (1.5-7.6); Eosinophil % 1.1 %; Hematocrit 29.1 % (35-45); Hemoglobin 9.8 g/dL (11.5-14.3); Lymphocyte % 15.6 %; Mean Corpuscular Hemoglobin 29.1 pg (27-33); Mean Corpuscular Hgb Conc 33.5 g/dL (31-36); Mean Corpuscular Volume 86.8 fL (80-97); Mean Platelet Volume 7.5 fL (7.5-11.2); Nucleated Red Blood Cells % 0.1 %/100WBC (0.0-0.8); Platelet Count 346 10^3/uL (150-450); Red Blood Count 3.36 10^6/uL (3.63-4.92); Red Cell Distribution Width 15.8 % (12-17); White Blood Count 4.9 10^3/uL (3.8-11.8)
[2024-01-03 13:58] LABS: Calcium 7.4 mg/dL (8.6-10.3); Creatinine, Serum 0.69 mg/dL (0.51-0.95); Magnesium 1.9 mg/dL (1.9-2.7); Potassium 3.8 mmol/L (3.5-5.0); eGFR CKD-EPI 83.9 (>60)
[2024-01-04 07:26] LABS: ABS Lymphocytes 0.6 10^3/uL (1.0-4.8); ABS Monocytes 0.6 10^3/uL (0.0-0.9); ABS Neutrophils 3.9 10^3/uL (1.5-7.6); ABS Nucleated RBC 0.01 10^3/ul; Eosinophil % 0.8 %; Hematocrit 32.4 % (35-45); Hemoglobin 10.6 g/dL (11.5-14.3); Lymphocyte % 12.4 %; Mean Corpuscular Hemoglobin 28.7 pg (27-33); Mean Corpuscular Hgb Conc 32.7 g/dL (31-36); Mean Corpuscular Volume 87.7 fL (80-97); Mean Platelet Volume 7.8 fL (7.5-11.2); Nucleated Red Blood Cells % 0.2 %/100WBC (0.0-0.8); Platelet Count 273 10^3/uL (150-450); Red Cell Distribution Width 15.3 % (12-17); White Blood Count 5.2 10^3/uL (3.8-11.8)
[2024-01-04 07:56] LABS: Anion Gap 10 mmol/L (2-16); Blood Urea Nitrogen 12 mg/dL (6-24); CO2 Carbon Dioxide 27 mmol/L (22-32); Calcium 7.1 mg/dL (8.6-10.3); Chloride 97 mmol/L (101-111); Creatinine, Serum 0.56 mg/dL (0.51-0.95); Glucose 113 mg/dL (70-100); Sodium 134 mmol/L (135-145); eGFR CKD-EPI 88.3 (>60)
[2024-01-04] MEDS: Furosemide 40 mg/4 ml IV VIAL IV SLOW PU ONE (10:12)
[2024-01-04] MEDS ORDERED: Morphine ORAL CONCENTRATE 5 MG/0.25 ML ORAL.SYRIN PO PRN (10:51)
[2024-01-04] MEDS: Chlorhexidine MOUTHWASH 0.12% 15 ML UDC TOPICAL SCH (11:34)
[2024-01-04] MEDS: Heparin 5000 UNITS/ML 1 mL VIAL SUBCUT SCH (14:58)
[2024-01-04] MEDS: Simethicone SUSP ORALSYR 66.66 MG/ML G TUBE SCH (14:59)
[2024-01-05 06:53] LABS: Calcium 7.1 mg/dL (8.6-10.3); Creatinine, Serum 0.58 mg/dL (0.51-0.95); Potassium 3.9 mmol/L (3.5-5.0); eGFR CKD-EPI 87.5 (>60)
[2024-01-05 07:42] LABS: ABS Eosinophils 0.1 10^3/uL (0.0-0.5); ABS Lymphocytes 0.9 10^3/uL (1.0-4.8); ABS Monocytes 0.6 10^3/uL (0.0-0.9); ABS Nucleated RBC 0.01 10^3/ul; Eosinophil % 1.1 %; Hematocrit 30.1 % (35-45); Lymphocyte % 15.4 %; Mean Corpuscular Hemoglobin 28.6 pg (27-33); Mean Corpuscular Hgb Conc 33.4 g/dL (31-36); Mean Corpuscular Volume 85.7 fL (80-97); Mean Platelet Volume 7.3 fL (7.5-11.2); Nucleated Red Blood Cells % 0.1 %/100WBC (0.0-0.8); Platelet Count 330 10^3/uL (150-450); Red Blood Count 3.51 10^6/uL (3.63-4.92); Red Cell Distribution Width 15.3 % (12-17); White Blood Count 5.5 10^3/uL (3.8-11.8)
[2024-01-05 10:24] LABS: C Reactive Protein 63.51 mg/L (<8.01)
[2024-01-05] MEDS: Acetaminophen IV 1 GM/100ML 1,000 MG/100 ML BAG IV PRN (11:17)
[2024-01-06 10:22] LABS: ABS Eosinophils 0.1 10^3/uL (0.0-0.5); ABS Lymphocytes 0.8 10^3/uL (1.0-4.8); ABS Monocytes 0.3 10^3/uL (0.0-0.9); ABS Neutrophils 4.1 10^3/uL (1.5-7.6); Eosinophil % 1.4 %; Hematocrit 28.3 % (35-45); Hemoglobin 9.6 g/dL (11.5-14.3); Lymphocyte % 14.8 %; Mean Corpuscular Hemoglobin 29.1 pg (27-33); Mean Corpuscular Volume 85.6 fL (80-97); Mean Platelet Volume 6.8 fL (7.5-11.2); Platelet Count 351 10^3/uL (150-450); Red Blood Count 3.31 10^6/uL (3.63-4.92); Red Cell Distribution Width 14.9 % (12-17); White Blood Count 5.3 10^3/uL (3.8-11.8)
[2024-01-06 11:00] LABS: Calcium 7.3 mg/dL (8.6-10.3); Creatinine, Serum 0.66 mg/dL (0.51-0.95); eGFR CKD-EPI 84.8 (>60)
[2024-01-06 12:41] LABS: Ferritin 44.8 ng/mL (11-307)
[2024-01-06 14:42] VITALS: BP 142/64
[2024-01-06 15:46] LABS: HDL Cholesterol 30.3 mg/dL
== END 2024-01-06 17:20 | DRG 871 ==
LOC: ED 15:22 → EDHOLD 18:06 → SUATTDRO 18:06 → MEDTELE 22:42
PROVIDERS: ADMIT Internal Medicine; ATTEND Internal Medicine

== ENCOUNTER 2024-01-13 14:14 | Inpatient (IN) ==
[2024-01-13] MEDS: Lactated Ringers 1000 ml BAG 1,000 ML IV ONE (14:43)
[2024-01-13 14:58] LABS: ABS Lymphocytes 0.5 10^3/uL (1.0-4.8); ABS Monocytes 1.3 10^3/uL (0.0-0.9); ABS Neutrophils 9.8 10^3/uL (1.5-7.6); Eosinophil % 0.2 %; Hemoglobin 10.6 g/dL (11.5-14.3); Lymphocyte % 3.9 %; Mean Corpuscular Hemoglobin 28.5 pg (27-33); Mean Corpuscular Hgb Conc 33.1 g/dL (31-36); Mean Corpuscular Volume 86.3 fL (80-97); Mean Platelet Volume 7.3 fL (7.5-11.2); Platelet Count 653 10^3/uL (150-450); Red Cell Distribution Width 15.8 % (12-17); White Blood Count 11.6 10^3/uL (3.8-11.8)
[2024-01-13 15:00] LABS: Activated Partial Thrombo Time 32.2 seconds (26.0-38.0); INR 1.15 (0.85-1.14)
[2024-01-13] MEDS ORDERED: Vancomycin 1,000 MG in NS 0.9% 250 ml 250 ML IVPB SCH (15:00)
[2024-01-13] MEDS: Cefepime 2 GM in Dextrose 2 GM/50 ML BAG IV ONE (15:00)
[2024-01-13 15:22] LABS: Urine Appearance Clear; Urine Bilirubin Negative (Negative); Urine Blood Negative (Negative); Urine Color Light-Yellow; Urine Glucose Negative (Negative); Urine Ketones Negative (Negative); Urine Nitrite Negative (Negative); Urine Protein Negative (Negative); Urine Specific Gravity 1.013 (1.002-1.030); Urine Urobilinogen Negative (Negative); Urine pH 7.5 (5.0-8.0)
[2024-01-13 15:32] LABS: Albumin 3.6 g/dL (3.2-5.2); Albumin/Globulin Ratio 1.1 (1-3); C Reactive Protein 80.4 mg/L (<8.01); Calcium 8.7 mg/dL (8.6-10.3); Creatinine, Serum 0.58 mg/dL (0.51-0.95); Globulin 3.2 g/dL (2-4); Potassium 5.3 mmol/L (3.5-5.0); Total Bilirubin 0.7 mg/dL (0.2-1.0); Total Protein 6.8 g/dL (6.4-8.9); eGFR CKD-EPI 87.5 (>60)
[2024-01-13] MEDS: Iohexol 300 (CONTRAST) 10 ML SDV IV ONE (15:53)
[2024-01-13] MEDS: metroNIDAZOLE IV 500 MG/100ML 500 MG/100 ML BAG IVPB ONE (16:32)
[2024-01-13 16:47] LABS: High Sensitivity Troponin 1 Hr 12 pg/mL (<15)
[2024-01-13] MEDS: Acetaminophen IV 1 GM/100ML 880 MG/88 ML BAG IV ONE (16:51)
[2024-01-13] MEDS: Vancomycin 1,000 MG - ED ONCE IVPB ONE (17:35)
[2024-01-13] MEDS ORDERED: Senna TAB 8.6 mg TAB PO PRN (20:10)
[2024-01-13] MEDS ORDERED: Polyethylene Glycol 3350 17 GM PACKET FEED TUBE PRN (20:11)
[2024-01-13] MEDS ORDERED: Acetaminophen IV 1 GM/100ML 1,000 MG/100 ML BAG IV PRN (20:15)
[2024-01-13] MEDS ORDERED: Albuterol/Ipratropium NEB.SOL (2.5/0.5 MG) 3 ML NEB.SOLN INH PRN (21:07)
[2024-01-13 21:24] LABS: Magnesium 1.8 mg/dL (1.9-2.7)
[2024-01-13] MEDS: Linezolid 600 MG IVPREMIX(*) 600 MG/300 ML BAG IVPB SCH (21:39)
[2024-01-13] MEDS: Magnesium Hydroxide LIQ 30 ML UDC PEG TUBE SCH (22:30)
[2024-01-13] MEDS: Enoxaparin 40 MG/0.4 ML SYR SUBCUT SCH (22:30)
[2024-01-13] MEDS: levETIRAcetam LIQ 500 MG/5 ML UDC FEED TUBE SCH (22:30)
[2024-01-13] MEDS: cefTRIAXone 1 gm/50 mL D5W 1 GM/50 ML BAG IV SCH (23:02)
[2024-01-14 07:59] LABS: ABS Eosinophils 0.2 10^3/uL (0.0-0.5); ABS Lymphocytes 0.3 10^3/uL (1.0-4.8); ABS Monocytes 0.7 10^3/uL (0.0-0.9); ABS Neutrophils 7.9 10^3/uL (1.5-7.6); Hematocrit 25.9 % (35-45); Hemoglobin 8.3 g/dL (11.5-14.3); Lymphocyte % 3.5 %; Mean Corpuscular Hemoglobin 28.1 pg (27-33); Mean Corpuscular Hgb Conc 32.1 g/dL (31-36); Mean Corpuscular Volume 87.7 fL (80-97); Mean Platelet Volume 7.1 fL (7.5-11.2); Platelet Count 513 10^3/uL (150-450); Red Blood Count 2.95 10^6/uL (3.63-4.92); Red Cell Distribution Width 15.8 % (12-17); White Blood Count 9.2 10^3/uL (3.8-11.8)
[2024-01-14 08:18] LABS: Calcium 7.6 mg/dL (8.6-10.3); Creatinine, Serum 0.72 mg/dL (0.51-0.95); Magnesium 1.8 mg/dL (1.9-2.7); Potassium 5.2 mmol/L (3.5-5.0); eGFR CKD-EPI 80.9 (>60)
[2024-01-14] MEDS ORDERED: Polyethylene Glycol 3350 17 GM PACKET FEED TUBE SCH (09:00)
[2024-01-14] MEDS: Magnesium Sulfate 2 gm BAG 2 GM/50 ML BAG IVPB ONE (09:11)
[2024-01-14] MEDS: Famotidine SUSP ORALSYR 8 MG/ML FEED TUBE SCH (10:25)
[2024-01-14] MEDS: Senna TAB 8.6 mg TAB PEG TUBE SCH (11:52)
[2024-01-14 16:54] LABS: ABS Basophils 0.1 10^3/uL (0.0-0.1); ABS Eosinophils 0.3 10^3/uL (0.0-0.5); ABS Lymphocytes 0.6 10^3/uL (1.0-4.8); ABS Monocytes 0.8 10^3/uL (0.0-0.9); ABS Neutrophils 5.8 10^3/uL (1.5-7.6); Eosinophil % 3.4 %; Hematocrit 26.3 % (35-45); Hemoglobin 8.7 g/dL (11.5-14.3); Lymphocyte % 7.5 %; Mean Corpuscular Hemoglobin 28.8 pg (27-33); Mean Corpuscular Hgb Conc 33.2 g/dL (31-36); Mean Corpuscular Volume 86.7 fL (80-97); Mean Platelet Volume 7.2 fL (7.5-11.2); Platelet Count 511 10^3/uL (150-450); Red Blood Count 3.04 10^6/uL (3.63-4.92); Red Cell Distribution Width 15.6 % (12-17); White Blood Count 7.5 10^3/uL (3.8-11.8)
[2024-01-14 17:24] LABS: Calcium 7.7 mg/dL (8.6-10.3); Creatinine, Serum 0.8 mg/dL (0.51-0.95); Magnesium 2.5 mg/dL (1.9-2.7); Potassium 5.2 mmol/L (3.5-5.0); eGFR CKD-EPI 71.3 (>60)
[2024-01-15 06:06] LABS: ABS Eosinophils 0.2 10^3/uL (0.0-0.5); ABS Lymphocytes 0.6 10^3/uL (1.0-4.8); ABS Monocytes 0.8 10^3/uL (0.0-0.9); ABS Neutrophils 4.4 10^3/uL (1.5-7.6); ABS Nucleated RBC 0.01 10^3/ul; Eosinophil % 4.1 %; Hematocrit 25.1 % (35-45); Hemoglobin 8.3 g/dL (11.5-14.3); Lymphocyte % 10.3 %; Mean Corpuscular Hemoglobin 28.3 pg (27-33); Mean Corpuscular Hgb Conc 32.9 g/dL (31-36); Mean Corpuscular Volume 86.2 fL (80-97); Mean Platelet Volume 7.3 fL (7.5-11.2); Nucleated Red Blood Cells % 0.1 %/100WBC (0.0-0.8); Platelet Count 514 10^3/uL (150-450); Red Blood Count 2.91 10^6/uL (3.63-4.92); Red Cell Distribution Width 15.8 % (12-17); White Blood Count 6.1 10^3/uL (3.8-11.8)
[2024-01-15 06:43] LABS: Albumin 2.6 g/dL (3.2-5.2); Calcium 7.4 mg/dL (8.6-10.3); Creatinine, Serum 0.85 mg/dL (0.51-0.95); Globulin 2.5 g/dL (2-4); Magnesium 2.4 mg/dL (1.9-2.7); Phosphorus 3.5 mg/dL (2.5-5.0); Potassium 4.9 mmol/L (3.5-5.0); Total Bilirubin 0.3 mg/dL (0.2-1.0); Total Protein 5.1 g/dL (6.4-8.9); eGFR CKD-EPI 66.3 (>60)
[2024-01-15] MEDS: Iohexol 300 (CONTRAST) 10 ML SDV IV ONE (13:30)
[2024-01-15] MEDS ORDERED: Magnesium Hydroxide LIQ 30 ML UDC PEG TUBE PRN (16:42)
[2024-01-16 06:07] LABS: ABS Eosinophils 0.2 10^3/uL (0.0-0.5); ABS Lymphocytes 0.8 10^3/uL (1.0-4.8); ABS Monocytes 0.8 10^3/uL (0.0-0.9); ABS Neutrophils 4.4 10^3/uL (1.5-7.6); Eosinophil % 3.3 %; Hematocrit 27.4 % (35-45); Hemoglobin 8.9 g/dL (11.5-14.3); Lymphocyte % 12.4 %; Mean Corpuscular Hemoglobin 28.2 pg (27-33); Mean Corpuscular Hgb Conc 32.7 g/dL (31-36); Mean Corpuscular Volume 86.3 fL (80-97); Mean Platelet Volume 7.3 fL (7.5-11.2); Nucleated Red Blood Cells % 0.1 %/100WBC (0.0-0.8); Platelet Count 563 10^3/uL (150-450); Red Blood Count 3.17 10^6/uL (3.63-4.92); Red Cell Distribution Width 15.5 % (12-17); White Blood Count 6.2 10^3/uL (3.8-11.8)
[2024-01-16 06:21] LABS: INR 1.14 (0.85-1.14)
[2024-01-16 07:04] LABS: Albumin 2.8 g/dL (3.2-5.2); Albumin/Globulin Ratio 1.1 (1-3); Calcium 7.9 mg/dL (8.6-10.3); Creatinine, Serum 0.76 mg/dL (0.51-0.95); Globulin 2.6 g/dL (2-4); Magnesium 2.4 mg/dL (1.9-2.7); Phosphorus 4.1 mg/dL (2.5-5.0); Total Bilirubin 0.3 mg/dL (0.2-1.0); Total Protein 5.4 g/dL (6.4-8.9); eGFR CKD-EPI 75.8 (>60)
[2024-01-16 10:37] LABS: Urine Appearance Clear; Urine Bilirubin Negative (Negative); Urine Blood Negative (Negative); Urine Color Light-Yellow; Urine Glucose Negative (Negative); Urine Ketones Negative (Negative); Urine Nitrite Negative (Negative); Urine Protein Negative (Negative); Urine Specific Gravity 1.017 (1.002-1.030); Urine Urobilinogen Negative (Negative); Urine pH 7.5 (5.0-8.0)
[2024-01-16] MEDS ORDERED: Naloxone 0.4 mg VIAL 0.4 mg/ml 1 ml VIAL IV PUSH PRN (11:37)
[2024-01-16] MEDS ORDERED: Flumazenil 0.5 mg/5 ml 0.1 MG/ML 5 ml VIAL IV PRN (11:37)
[2024-01-16] MEDS: fentaNYL 100 mcg/2 ml 50 MCG/ML VIAL IV SLOW PU ONE (13:22)
[2024-01-16] MEDS: Midazolam 10 mg/10 ml VIAL 1 mg/ml 10 ml VIAL (10 mg) IV SLOW PU ONE (13:23)
[2024-01-16] MEDS: fentaNYL 100 mcg/2 ml 50 MCG/ML VIAL ONE (13:23)
[2024-01-16 20:48] LABS: Urine Appearance Clear; Urine Bilirubin Negative (Negative); Urine Blood 3+ (Negative); Urine Glucose Negative (Negative); Urine Ketones Negative (Negative); Urine Nitrite Negative (Negative); Urine Protein 1+ (>=30 mg/dL) (Negative); Urine Specific Gravity 1.006 (1.002-1.030); Urine Urobilinogen Negative (Negative); Urine pH 8.5 (5.0-8.0)
[2024-01-16 20:49] LABS: Urine Color Light-Red
[2024-01-16 20:53] LABS: Urine Amorphous Crystals Present /HPF (Absent); Urine Bacteria Absent /HPF (Absent); Urine Red Blood Cell 3+(>10/hpf) /HPF (0-Trace); Urine White Blood Cell 1+(6-10/hpf) /HPF (0-Trace)
[2024-01-17 06:31] LABS: ABS Eosinophils 0.2 10^3/uL (0.0-0.5); ABS Lymphocytes 0.8 10^3/uL (1.0-4.8); ABS Monocytes 0.7 10^3/uL (0.0-0.9); ABS Neutrophils 3.7 10^3/uL (1.5-7.6); Eosinophil % 2.8 %; Hemoglobin 9.1 g/dL (11.5-14.3); Lymphocyte % 14.4 %; Mean Corpuscular Hemoglobin 29.2 pg (27-33); Mean Corpuscular Hgb Conc 33.9 g/dL (31-36); Mean Corpuscular Volume 86.1 fL (80-97); Mean Platelet Volume 7.2 fL (7.5-11.2); Platelet Count 628 10^3/uL (150-450); Red Blood Count 3.13 10^6/uL (3.63-4.92); Red Cell Distribution Width 15.5 % (12-17); White Blood Count 5.4 10^3/uL (3.8-11.8)
[2024-01-17 06:50] LABS: Albumin 2.9 g/dL (3.2-5.2); Albumin/Globulin Ratio 1.1 (1-3); Creatinine, Serum 0.57 mg/dL (0.51-0.95); Globulin 2.7 g/dL (2-4); Magnesium 2.2 mg/dL (1.9-2.7); Phosphorus 4.3 mg/dL (2.5-5.0); Potassium 4.9 mmol/L (3.5-5.0); Total Bilirubin 0.3 mg/dL (0.2-1.0); Total Protein 5.6 g/dL (6.4-8.9); eGFR CKD-EPI 87.9 (>60)
[2024-01-17] MEDS: Enoxaparin 40 MG/0.4 ML SYR SUBCUT SCH (21:22)
[2024-01-18 07:01] LABS: ABS Eosinophils 0.2 10^3/uL (0.0-0.5); ABS Lymphocytes 1.1 10^3/uL (1.0-4.8); ABS Monocytes 0.6 10^3/uL (0.0-0.9); ABS Neutrophils 2.9 10^3/uL (1.5-7.6); ABS Nucleated RBC 0.01 10^3/ul; Eosinophil % 3.4 %; Hematocrit 27.2 % (35-45); Hemoglobin 9.1 g/dL (11.5-14.3); Lymphocyte % 22.8 %; Mean Corpuscular Hemoglobin 28.9 pg (27-33); Mean Corpuscular Hgb Conc 33.5 g/dL (31-36); Mean Corpuscular Volume 86.3 fL (80-97); Mean Platelet Volume 7.4 fL (7.5-11.2); Nucleated Red Blood Cells % 0.2 %/100WBC (0.0-0.8); Platelet Count 595 10^3/uL (150-450); Red Blood Count 3.15 10^6/uL (3.63-4.92); Red Cell Distribution Width 15.4 % (12-17); White Blood Count 4.7 10^3/uL (3.8-11.8)
[2024-01-18 07:39] LABS: Albumin 2.8 g/dL (3.2-5.2); Albumin/Globulin Ratio 1.1 (1-3); Calcium 7.9 mg/dL (8.6-10.3); Creatinine, Serum 0.5 mg/dL (0.51-0.95); Globulin 2.6 g/dL (2-4); Magnesium 1.9 mg/dL (1.9-2.7); Potassium 4.9 mmol/L (3.5-5.0); Total Bilirubin 0.3 mg/dL (0.2-1.0); Total Protein 5.4 g/dL (6.4-8.9); eGFR CKD-EPI 90.7 (>60)
[2024-01-18 14:24] VITALS: BP 166/66
== END 2024-01-18 16:35 | DRG 871 ==
LOC: EDHOLD 14:14 → ED 14:14 → SUATTDRO 18:59 → MED 19:51 → SUATTDRO 01-14 11:00
PROVIDERS: ADMIT Student in an Organized Health Care Education/Training Program; ATTEND Internal Medicine

== ENCOUNTER 2024-02-16 18:26 | Inpatient (IN) ==
[2024-02-16] MEDS: Lactated Ringers 1000 ml BAG 1,000 ML IV ONE (20:03)
[2024-02-16 21:53] LABS: ABS Eosinophils 0.1 10^3/uL (0.0-0.5); ABS Lymphocytes 1.2 10^3/uL (1.0-4.8); ABS Monocytes 0.6 10^3/uL (0.0-0.9); ABS Neutrophils 6.3 10^3/uL (1.5-7.6); Eosinophil % 1.8 %; Hematocrit 46.1 % (35-45); Lymphocyte % 14.6 %; Mean Corpuscular Hemoglobin 27.8 pg (27-33); Mean Corpuscular Hgb Conc 30.4 g/dL (31-36); Mean Corpuscular Volume 91.4 fL (80-97); Mean Platelet Volume 9.1 fL (7.5-11.2); Nucleated Red Blood Cells % 0.1 %/100WBC (0.0-0.8); Platelet Count 289 10^3/uL (150-450); Red Blood Count 5.04 10^6/uL (3.63-4.92); Red Cell Distribution Width 17.7 % (12-17); White Blood Count 8.3 10^3/uL (3.8-11.8)
[2024-02-16 21:54] LABS: ABS Nucleated RBC 0.01 10^3/ul
[2024-02-16 22:18] LABS: Albumin 3.8 g/dL (3.2-5.2); Albumin/Globulin Ratio 1.1 (1-3); Calcium 9.1 mg/dL (8.6-10.3); Creatinine, Serum 0.68 mg/dL (0.51-0.95); Globulin 3.5 g/dL (2-4); Potassium 4.6 mmol/L (3.5-5.0); Total Bilirubin 0.8 mg/dL (0.2-1.0); Total Protein 7.3 g/dL (6.4-8.9); eGFR CKD-EPI 84.2 (>60)
[2024-02-16] MEDS: Metoprolol Tartrate 5 mg VIAL 5 ml VIAL (1 mg/ml) IV ONE (23:03)
[2024-02-16 23:38] LABS: C Reactive Protein 24.54 mg/L (<8.01)
[2024-02-17] MEDS ORDERED: Albuterol 2.5mg/3 ml (0.083%) NEB.SOLN INH PRN (00:50)
[2024-02-17] MEDS: Mineral Oil ENEMA 118 ML/BOTTLE BOTTLE PR ONE (01:13)
[2024-02-17] MEDS ORDERED: Magnesium Hydroxide LIQ 30 ML UDC PO PRN (02:32)
[2024-02-17] MEDS ORDERED: Polyethylene Glycol 3350 17 GM PACKET PO PRN (02:32)
[2024-02-17] MEDS ORDERED: Senna TAB 8.6 mg TAB PO PRN (02:32)
[2024-02-17] MEDS: D5W 1000 ml BAG 1,000 ML IV SCH (02:54)
[2024-02-17] MEDS: Metoprolol Tartrate 5 mg VIAL 5 ml VIAL (1 mg/ml) IV SCH ×2 (04:36→09:28)
[2024-02-17] MEDS ORDERED: guaiFENesin 100 mg/5 ml LIQ unit dose cup G TUBE PRN (05:39)
[2024-02-17 06:57] LABS: ABS Basophils 0.1 10^3/uL (0.0-0.1); ABS Eosinophils 0.1 10^3/uL (0.0-0.5); ABS Lymphocytes 1.2 10^3/uL (1.0-4.8); ABS Monocytes 0.6 10^3/uL (0.0-0.9); ABS Neutrophils 8.3 10^3/uL (1.5-7.6); ABS Nucleated RBC 0.01 10^3/ul; Eosinophil % 1.2 %; Hematocrit 37.3 % (35-45); Hemoglobin 11.8 g/dL (11.5-14.3); Mean Corpuscular Hemoglobin 27.4 pg (27-33); Mean Corpuscular Hgb Conc 31.7 g/dL (31-36); Mean Corpuscular Volume 86.4 fL (80-97); Mean Platelet Volume 9.1 fL (7.5-11.2); Nucleated Red Blood Cells % 0.1 %/100WBC (0.0-0.8); Platelet Count 351 10^3/uL (150-450); Red Blood Count 4.32 10^6/uL (3.63-4.92); Red Cell Distribution Width 16.8 % (12-17); White Blood Count 10.3 10^3/uL (3.8-11.8)
[2024-02-17 07:24] LABS: Calcium 8.5 mg/dL (8.6-10.3); Creatinine, Serum 0.67 mg/dL (0.51-0.95); Potassium 4.5 mmol/L (3.5-5.0); eGFR CKD-EPI 84.5 (>60)
[2024-02-17] MEDS ORDERED: Magnesium Hydroxide LIQ 30 ML UDC PO SCH (09:00)
[2024-02-17 12:00] LABS: Urine Appearance Extra Turbid; Urine Bilirubin Negative (Negative); Urine Blood 1+ (Negative); Urine Glucose Negative (Negative); Urine Ketones Negative (Negative); Urine Nitrite Negative (Negative); Urine Protein 1+ (>=30 mg/dL) (Negative); Urine Specific Gravity 1.017 (1.002-1.030); Urine Urobilinogen 1+ (Negative)
[2024-02-17 12:03] LABS: Urine Bacteria Absent /HPF (Absent); Urine Red Blood Cell 3+(>10/hpf) /HPF (0-Trace); Urine White Blood Cell 3+(>20/hpf) /HPF (0-Trace)
[2024-02-17 12:29] LABS: Urine Color Dark-Yellow
[2024-02-17] MEDS: levETIRAcetam 500 MG IVPREMIX 500 MG/100 ML BAG IV SCH (17:03)
[2024-02-17 20:53] LABS: Creatinine, Serum 0.54 mg/dL (0.51-0.95); Potassium 3.9 mmol/L (3.5-5.0); eGFR CKD-EPI 89.1 (>60)
[2024-02-17] MEDS: Enoxaparin 40 MG/0.4 ML SYR SUBCUT SCH (21:39)
[2024-02-17] MEDS: Famotidine IV 10 MG/ML 2 ml VIAL (20 mg) IV SLOW PU SCH (21:39)
[2024-02-17] MEDS: Metoprolol Tartrate 5 mg VIAL 5 ml VIAL (1 mg/ml) IV PRN (22:31)
[2024-02-18 01:28] LABS: Calcium 7.9 mg/dL (8.6-10.3); Creatinine, Serum 0.53 mg/dL (0.51-0.95); eGFR CKD-EPI 89.5 (>60)
[2024-02-18 08:24] LABS: ABS Basophils 0.1 10^3/uL (0.0-0.1); ABS Eosinophils 0.3 10^3/uL (0.0-0.5); ABS Lymphocytes 1.5 10^3/uL (1.0-4.8); ABS Monocytes 0.6 10^3/uL (0.0-0.9); ABS Neutrophils 5.5 10^3/uL (1.5-7.6); ABS Nucleated RBC 0.01 10^3/ul; Eosinophil % 3.5 %; Hematocrit 34.7 % (35-45); Lymphocyte % 18.8 %; Mean Corpuscular Hemoglobin 27.3 pg (27-33); Mean Corpuscular Hgb Conc 31.6 g/dL (31-36); Mean Corpuscular Volume 86.4 fL (80-97); Nucleated Red Blood Cells % 0.1 %/100WBC (0.0-0.8); Platelet Count 289 10^3/uL (150-450); Red Blood Count 4.01 10^6/uL (3.63-4.92); Red Cell Distribution Width 16.6 % (12-17); White Blood Count 7.8 10^3/uL (3.8-11.8)
[2024-02-18 08:38] LABS: Calcium 7.8 mg/dL (8.6-10.3); Creatinine, Serum 0.56 mg/dL (0.51-0.95); Magnesium 1.9 mg/dL (1.9-2.7); Potassium 4.2 mmol/L (3.5-5.0); eGFR CKD-EPI 88.3 (>60)
[2024-02-18] MEDS: cefTRIAXone 1 gm/50 mL D5W 1 GM/50 ML BAG IV SCH (17:34)
[2024-02-18] MEDS: Lactated Ringers 1000 ml BAG 1,000 ML IV SCH (18:34)
[2024-02-18] MEDS: Acetaminophen IV 1 GM/100ML 1,000 MG/100 ML BAG IV PRN (20:57)
[2024-02-19 15:50] LABS: Blood Urea Nitrogen 18 mg/dL (6-24); CO2 Carbon Dioxide 20 mmol/L (22-32); Calcium 8.2 mg/dL (8.6-10.3); Chloride 110 mmol/L (101-111); Creatinine, Serum 0.64 mg/dL (0.51-0.95); Glucose 60 mg/dL (70-100); Magnesium 1.9 mg/dL (1.9-2.7); Sodium 141 mmol/L (135-145); eGFR CKD-EPI 85.5 (>60)
[2024-02-19 15:51] LABS: Anion Gap 11 mmol/L (2-16)
[2024-02-19] MEDS: fentaNYL 100 mcg/2 ml 50 MCG/ML VIAL ONE (18:18)
[2024-02-20] MEDS: Metoprolol Tartrate 5 mg VIAL 5 ml VIAL (1 mg/ml) IV ONE (16:40)
[2024-02-20] MEDS: Magnesium Sulfate IV 1GM/100ML 1 GM/100 ML BAG IV ONE (16:40)
[2024-02-20] MEDS: Digoxin IV 0.5 MG/2 ML AMP (0.25 MG/ML) IV SLOW PU ONE (16:40)
[2024-02-20] MEDS: KCL 20 MEQ/100 ML IVPREMIX 20 MEQ/100 ML BAG IV SCH (18:26)
[2024-02-20] MEDS ORDERED: Potassium Chloride LIQUID 20 MEQ/15 ML LIQUID PO ONE (21:18)
[2024-02-20] MEDS: Hyaluronidase HUMAN 15 UNIT in Sodium Chloride 0.9% 0.9 ML INTRADERM ONE (21:50)
[2024-02-21 02:08] LABS: Calcium 7.7 mg/dL (8.6-10.3); Creatinine, Serum 0.59 mg/dL (0.51-0.95); Potassium 4.4 mmol/L (3.5-5.0); eGFR CKD-EPI 87.2 (>60)
[2024-02-21] MEDS: Metoprolol Tartrate 5 mg VIAL 5 ml VIAL (1 mg/ml) IV PRN (05:07)
[2024-02-21 06:56] LABS: Hematocrit 39.6 % (35-45); Hemoglobin 12.8 g/dL (11.5-14.3); Mean Corpuscular Hemoglobin 28.1 pg (27-33); Mean Corpuscular Hgb Conc 32.2 g/dL (31-36); Mean Corpuscular Volume 87.1 fL (80-97); Mean Platelet Volume 9.2 fL (7.5-11.2); Platelet Count 356 10^3/uL (150-450); Red Blood Count 4.54 10^6/uL (3.63-4.92); Red Cell Distribution Width 16.9 % (12-17); White Blood Count 9.4 10^3/uL (3.8-11.8)
[2024-02-21] MEDS: Calcium Gluconate 1 GM/10 ML VIAL (in Pyxis) IV PUSH ONE (11:43)
[2024-02-21] MEDS: CALCIUM GLUCONATE 1GM/50ML NS BAG IV SCH (12:20)
[2024-02-22 06:45] LABS: Calcium 7.7 mg/dL (8.6-10.3); Creatinine, Serum 0.54 mg/dL (0.51-0.95); Magnesium 1.9 mg/dL (1.9-2.7); Potassium 4.6 mmol/L (3.5-5.0); eGFR CKD-EPI 89.1 (>60)
[2024-02-22 10:16] VITALS: BP 157/108
== END 2024-02-22 13:15 | DRG 920 ==
LOC: ED 18:26 → EDHOLD 18:26 → MED 02-17 00:19 → SUATTDRO 02-19 10:00
PROVIDERS: ADMIT Internal Medicine; ATTEND Internal Medicine

== ENCOUNTER 2024-02-29 13:42 | Observation (INO) ==
[2024-02-29 18:55] LABS: ABS Eosinophils 0.1 10^3/uL (0.0-0.5); ABS Neutrophils 10.5 10^3/uL (1.5-7.6); ABS Nucleated RBC 0.01 10^3/ul; Eosinophil % 0.9 %; Hematocrit 32.7 % (35-45); Hemoglobin 10.4 g/dL (11.5-14.3); Lymphocyte % 8.3 %; Mean Corpuscular Hemoglobin 26.9 pg (27-33); Mean Corpuscular Hgb Conc 31.8 g/dL (31-36); Mean Corpuscular Volume 84.4 fL (80-97); Mean Platelet Volume 8.9 fL (7.5-11.2); Nucleated Red Blood Cells % 0.1 %/100WBC (0.0-0.8); Platelet Count 467 10^3/uL (150-450); Red Blood Count 3.88 10^6/uL (3.63-4.92); Red Cell Distribution Width 16.7 % (12-17); White Blood Count 12.7 10^3/uL (3.8-11.8)
[2024-02-29 19:16] LABS: ALT 19 U/L (7-52); Albumin 3.3 g/dL (3.2-5.2); Albumin/Globulin Ratio 1.2 (1-3); Alkaline Phosphatase 100 U/L (35-149); Anion Gap 4 mmol/L (2-16); Blood Urea Nitrogen 26 mg/dL (6-24); CO2 Carbon Dioxide 28 mmol/L (22-32); CRP High Sensitivity 34.69 mg/L (<2.00); Calcium 8.3 mg/dL (8.6-10.3); Chloride 106 mmol/L (101-111); Creatinine, Serum 0.58 mg/dL (0.51-0.95); Globulin 2.7 g/dL (2-4); Glucose 96 mg/dL (70-100); Sodium 138 mmol/L (135-145); Total Bilirubin 0.6 mg/dL (0.2-1.0); eGFR CKD-EPI 87.5 (>60)
[2024-02-29] MEDS ORDERED: Iodixanol 320 (CONTRAST) 100 ML SDV IV ONE (19:48)
[2024-02-29 22:40] LABS: Potassium Redraw 4.1 mmol/L (3.5-5.0)
[2024-02-29 23:14] LABS: Urine Appearance Turbid; Urine Bilirubin Negative (Negative); Urine Blood Negative (Negative); Urine Color Yellow; Urine Glucose Negative (Negative); Urine Ketones Negative (Negative); Urine Nitrite Negative (Negative); Urine Protein Trace (Negative); Urine Specific Gravity 1.016 (1.002-1.030); Urine Urobilinogen Negative (Negative); Urine pH 7.5 (5.0-8.0)
[2024-02-29 23:24] LABS: Urine Bacteria Absent /HPF (Absent); Urine Red Blood Cell Absent /HPF (0-Trace); Urine Squamous Epithelial Cell Present /HPF (Absent); Urine White Blood Cell 2+(11-20/hpf) /HPF (0-Trace)
[2024-02-29] MEDS: cefTRIAXone 1 gm/50 mL D5W 1 GM/50 ML BAG IV ONE (23:44)
[2024-03-01] MEDS ORDERED: Albuterol/Ipratropium NEB.SOL (2.5/0.5 MG) 3 ML NEB.SOLN INH PRN (01:27)
[2024-03-01] MEDS: Lactated Ringers SEPSIS* BAG 1,770 ML IV ONE (02:48)
[2024-03-01] MEDS: Vancomycin 1,000 MG in NS 0.9% 250 ml 250 ML IVPB ONE (02:48)
[2024-03-01] MEDS: cefTRIAXone 1 gm/50 mL D5W 1 GM/50 ML BAG IV SCH (02:55)
[2024-03-01] MEDS ORDERED: Vancomycin per Pharmacy 1 EA NOTE FOLLOW UP SCH ×2 (03:00→14:00)
[2024-03-01 05:38] LABS: ABS Eosinophils 0.1 10^3/uL (0.0-0.5); ABS Lymphocytes 0.9 10^3/uL (1.0-4.8); ABS Monocytes 0.7 10^3/uL (0.0-0.9); ABS Neutrophils 5.4 10^3/uL (1.5-7.6); ABS Nucleated RBC 0.01 10^3/ul; Eosinophil % 1.4 %; Hematocrit 29.2 % (35-45); Hemoglobin 9.6 g/dL (11.5-14.3); Lymphocyte % 12.8 %; Mean Corpuscular Hemoglobin 27.6 pg (27-33); Mean Corpuscular Hgb Conc 32.8 g/dL (31-36); Mean Corpuscular Volume 84.1 fL (80-97); Mean Platelet Volume 8.5 fL (7.5-11.2); Nucleated Red Blood Cells % 0.1 %/100WBC (0.0-0.8); Platelet Count 431 10^3/uL (150-450); Red Blood Count 3.48 10^6/uL (3.63-4.92); Red Cell Distribution Width 16.8 % (12-17); White Blood Count 7.2 10^3/uL (3.8-11.8)
[2024-03-01 05:57] LABS: INR 1.28 (0.85-1.14)
[2024-03-01 06:08] LABS: Anion Gap 8 mmol/L (2-16); Blood Urea Nitrogen 26 mg/dL (6-24); CO2 Carbon Dioxide 27 mmol/L (22-32); Calcium 7.8 mg/dL (8.6-10.3); Chloride 107 mmol/L (101-111); Creatinine, Serum 0.57 mg/dL (0.51-0.95); Glucose 87 mg/dL (70-100); Sodium 142 mmol/L (135-145); eGFR CKD-EPI 87.9 (>60)
[2024-03-01] MEDS ORDERED: Zosyn per Pharmacy NOTE FOLLOW UP SCH (10:00)
[2024-03-01] MEDS: Polyethylene Glycol 3350 17 GM PACKET FEED TUBE SCH (11:25)
[2024-03-01] MEDS: Famotidine SUSP ORALSYR 8 MG/ML FEED TUBE SCH (11:32)
[2024-03-01] MEDS: Piperacillin/Tazobac 3.375 BAG 3.375 GM/100 ML BAG IV ONE (11:49)
[2024-03-01] MEDS: Ammonium Lactate 12% 1 APPLIC TUBE TOPICAL SCH (13:48)
[2024-03-01] MEDS: Vancomycin 750 MG in NS 0.9% 250 ML IVPB SCH (15:07)
[2024-03-01] MEDS: ZOSYN 3.375 GM Q8H per EXTENDED INFUSION IV SCH (17:04)
[2024-03-01] MEDS ORDERED: Vancomycin 750 MG in NS 0.9% 250 ML IVPB SCH (18:00)
[2024-03-01] MEDS ORDERED: cefTRIAXone 1 gm/50 mL D5W 1 GM/50 ML BAG IV SCH (23:00)
[2024-03-02 07:26] LABS: Calcium 7.2 mg/dL (8.6-10.3); Creatinine, Serum 0.59 mg/dL (0.51-0.95); Magnesium 1.6 mg/dL (1.9-2.7); Potassium 3.6 mmol/L (3.5-5.0); eGFR CKD-EPI 87.2 (>60)
[2024-03-02 07:28] LABS: Hematocrit 24.5 % (35-45); Hemoglobin 8.3 g/dL (11.5-14.3); Mean Corpuscular Hemoglobin 27.9 pg (27-33); Mean Corpuscular Hgb Conc 33.8 g/dL (31-36); Mean Corpuscular Volume 82.7 fL (80-97); Mean Platelet Volume 7.9 fL (7.5-11.2); Platelet Count 339 10^3/uL (150-450); Red Blood Count 2.97 10^6/uL (3.63-4.92); Red Cell Distribution Width 16.6 % (12-17); White Blood Count 5.5 10^3/uL (3.8-11.8)
[2024-03-02] MEDS: Potassium Chloride LIQUID 20 MEQ/15 ML LIQUID PEG TUBE ONE (09:25)
[2024-03-02] MEDS: cefTRIAXone 1 gm/50 mL D5W 1 GM/50 ML BAG IV SCH (14:12)
[2024-03-02] MEDS ORDERED: Vancomycin Trough Check NOTE FOLLOW UP ONE ×2 (14:30→17:30)
[2024-03-02] MEDS: Magnesium Sulf 4 GM/100 ML IV 4,000 MG/100 ML BAG IVPB ONE (15:35)
[2024-03-03 06:32] LABS: ABS Eosinophils 0.2 10^3/uL (0.0-0.5); ABS Lymphocytes 0.9 10^3/uL (1.0-4.8); ABS Monocytes 0.6 10^3/uL (0.0-0.9); ABS Neutrophils 3.3 10^3/uL (1.5-7.6); ABS Nucleated RBC 0.02 10^3/ul; Eosinophil % 4.4 %; Hematocrit 27.7 % (35-45); Lymphocyte % 17.5 %; Mean Corpuscular Hemoglobin 27.6 pg (27-33); Mean Corpuscular Hgb Conc 32.4 g/dL (31-36); Mean Corpuscular Volume 85.2 fL (80-97); Nucleated Red Blood Cells % 0.4 %/100WBC (0.0-0.8); Platelet Count 324 10^3/uL (150-450); Red Blood Count 3.25 10^6/uL (3.63-4.92); Red Cell Distribution Width 16.5 % (12-17)
[2024-03-03 07:02] LABS: Calcium 7.6 mg/dL (8.6-10.3); Creatinine, Serum 0.54 mg/dL (0.51-0.95); Magnesium 2.5 mg/dL (1.9-2.7); Potassium 4.5 mmol/L (3.5-5.0); eGFR CKD-EPI 89.1 (>60)
[2024-03-03] MEDS: Linezolid 600 MG IVPREMIX(*) 600 MG/300 ML BAG IVPB SCH (14:48)
[2024-03-04 06:23] LABS: Hemoglobin 9.1 g/dL (11.5-14.3); Mean Corpuscular Hemoglobin 28.1 pg (27-33); Mean Corpuscular Hgb Conc 33.7 g/dL (31-36); Mean Corpuscular Volume 83.4 fL (80-97); Mean Platelet Volume 8.2 fL (7.5-11.2); Platelet Count 377 10^3/uL (150-450); Red Blood Count 3.24 10^6/uL (3.63-4.92); Red Cell Distribution Width 16.3 % (12-17); White Blood Count 5.7 10^3/uL (3.8-11.8)
[2024-03-04 07:13] LABS: Anion Gap 9 mmol/L (2-16); Blood Urea Nitrogen 13 mg/dL (6-24); CO2 Carbon Dioxide 23 mmol/L (22-32); Calcium 7.6 mg/dL (8.6-10.3); Chloride 105 mmol/L (101-111); Creatinine, Serum 0.48 mg/dL (0.51-0.95); Glucose 122 mg/dL (70-100); Sodium 137 mmol/L (135-145); eGFR CKD-EPI 91.6 (>60)
[2024-03-04] MEDS: Cefepime 1 GM in Dextrose 1 GM/50 ML BAG IV SCH (19:39)
[2024-03-05 05:27] LABS: ABS Eosinophils 0.3 10^3/uL (0.0-0.5); ABS Lymphocytes 0.9 10^3/uL (1.0-4.8); ABS Monocytes 0.4 10^3/uL (0.0-0.9); ABS Neutrophils 4.3 10^3/uL (1.5-7.6); Eosinophil % 4.4 %; Hematocrit 28.5 % (35-45); Hemoglobin 9.6 g/dL (11.5-14.3); Lymphocyte % 15.2 %; Mean Corpuscular Hgb Conc 33.6 g/dL (31-36); Mean Corpuscular Volume 83.4 fL (80-97); Mean Platelet Volume 7.9 fL (7.5-11.2); Platelet Count 389 10^3/uL (150-450); Red Blood Count 3.42 10^6/uL (3.63-4.92); Red Cell Distribution Width 16.3 % (12-17); White Blood Count 5.9 10^3/uL (3.8-11.8)
[2024-03-05 05:42] LABS: Calcium 7.8 mg/dL (8.6-10.3); Creatinine, Serum 0.47 mg/dL (0.51-0.95); Magnesium 1.8 mg/dL (1.9-2.7); Potassium 3.8 mmol/L (3.5-5.0); eGFR CKD-EPI 92.1 (>60)
[2024-03-05] MEDS: Magnesium Sulfate 2 gm BAG 2 GM/50 ML BAG IVPB ONE (07:47)
[2024-03-05 10:28] VITALS: BP 114/73
[2024-03-05] MEDS ORDERED: LINEZOLID 100 MG/5 ML PO SCH (12:00)
[2024-03-05] MEDS ORDERED: CIPROFLOXACIN 250 MG/5 ML PO SCH (21:00)
== END 2024-03-05 13:15 | disposition home or self-care (01) ==
LOC: ED 13:42 → EDHOLD 13:42 → SUATTDRO 03-01 00:53 → MED 03-01 08:20
PROVIDERS: ADMIT Internal Medicine; ATTEND Student in an Organized Health Care Education/Training Program

== ENCOUNTER 2024-03-28 10:34 | Inpatient (IN) ==
[2024-03-28] MEDS: Lactated Ringers SEPSIS* BAG 1,570 ML IV ONE (11:10)
[2024-03-28 11:18] LABS: ABS Lymphocytes 0.7 10^3/uL (1.0-4.8); ABS Monocytes 1.1 10^3/uL (0.0-0.9); ABS Neutrophils 10.4 10^3/uL (1.5-7.6); Eosinophil % 0.1 %; Hematocrit 32.7 % (35-45); Hemoglobin 10.6 g/dL (11.5-14.3); Mean Corpuscular Hemoglobin 26.6 pg (27-33); Mean Corpuscular Hgb Conc 32.4 g/dL (31-36); Mean Platelet Volume 8.6 fL (7.5-11.2); Platelet Count 392 10^3/uL (150-450); Red Blood Count 3.99 10^6/uL (3.63-4.92); White Blood Count 12.3 10^3/uL (3.8-11.8)
[2024-03-28 11:34] LABS: Activated Partial Thrombo Time 30.3 seconds (26.0-38.0); INR 1.28 (0.85-1.14)
[2024-03-28 11:35] LABS: Urine Appearance Turbid; Urine Bacteria Absent /HPF (Absent); Urine Bilirubin Negative (Negative); Urine Blood 3+ (Negative); Urine Glucose Negative (Negative); Urine Ketones Negative (Negative); Urine Nitrite Negative (Negative); Urine Protein 3+ (>=300 mg/dL) (Negative); Urine Red Blood Cell 3+(>10/hpf) /HPF (0-Trace); Urine Specific Gravity >1.050 (1.002-1.030); Urine Urobilinogen Negative (Negative); Urine White Blood Cell 3+(>20/hpf) /HPF (0-Trace); Urine pH 7.5 (5.0-8.0)
[2024-03-28 11:36] LABS: Urine Color Straw
[2024-03-28 12:03] LABS: Albumin 3.5 g/dL (3.5-5.7); Albumin/Globulin Ratio 1.2 (1-3); C Reactive Protein 125.42 mg/L (<8.01); Calcium 8.5 mg/dL (8.6-10.3); Creatinine, Serum 0.6 mg/dL (0.51-0.95); Total Protein 6.5 g/dL (6.4-8.9); eGFR CKD-EPI 86.8 (>60)
[2024-03-28 12:24] LABS: Potassium 4.3 mmol/L (3.5-5.0)
[2024-03-28] MEDS: Cefepime 2 GM in Dextrose 2 GM/50 ML BAG IV ONE (12:37)
[2024-03-28 13:10] LABS: High Sensitivity Troponin 1 Hr 15 pg/mL (<15)
[2024-03-28] MEDS: Metoprolol Tartrate 5 mg VIAL 5 ml VIAL (1 mg/ml) IV ONE ×2 (13:54→14:29)
[2024-03-28] MEDS: Acetaminophen IV 1 GM/100ML 1,000 MG/100 ML BAG IV PRN (14:30)
[2024-03-28 14:56] LABS: Magnesium 2.1 mg/dL (1.9-2.7)
[2024-03-28] MEDS ORDERED: Albuterol 2.5mg/3 ml (0.083%) NEB.SOLN INH PRN (15:06)
[2024-03-28] MEDS: Lactated Ringers 1000 ml BAG 500 ML IV ONE (16:48)
[2024-03-28] MEDS: Linezolid 600 MG IVPREMIX(*) 600 MG/300 ML BAG IVPB SCH (18:32)
[2024-03-28] MEDS: Lactated Ringers 1000 ml BAG 1,000 ML IV SCH (18:32)
[2024-03-28] MEDS: Famotidine SUSP ORALSYR 8 MG/ML FEED TUBE SCH (22:27)
[2024-03-28] MEDS: Polyethylene Glycol 3350 17 GM PACKET FEED TUBE SCH (22:27)
[2024-03-28] MEDS: Senna TAB 8.6 mg TAB G TUBE SCH (22:27)
[2024-03-28] MEDS: Enoxaparin 40 MG/0.4 ML SYR SUBCUT SCH (22:27)
[2024-03-28] MEDS: AMMONIUM LACTATE 5% TOPICAL SCH (22:28)
[2024-03-28] MEDS: Cefepime 2 GM in Dextrose 2 GM/50 ML BAG IV SCH ×2 (23:28→23:51)
[2024-03-29] MEDS: Metoprolol Tartrate 5 mg VIAL 5 ml VIAL (1 mg/ml) IV ONE (01:53)
[2024-03-29 06:26] LABS: ABS Lymphocytes 0.5 10^3/uL (1.0-4.8); ABS Monocytes 0.7 10^3/uL (0.0-0.9); ABS Neutrophils 6.5 10^3/uL (1.5-7.6); Eosinophil % 0.5 %; Hemoglobin 9.6 g/dL (11.5-14.3); Lymphocyte % 7.1 %; Mean Corpuscular Hemoglobin 26.2 pg (27-33); Mean Corpuscular Volume 81.9 fL (80-97); Mean Platelet Volume 9.1 fL (7.5-11.2); Platelet Count 350 10^3/uL (150-450); Red Blood Count 3.67 10^6/uL (3.63-4.92); Red Cell Distribution Width 17.3 % (12-17); White Blood Count 7.8 10^3/uL (3.8-11.8)
[2024-03-29 06:42] LABS: Albumin 3.1 g/dL (3.5-5.7); Albumin/Globulin Ratio 1.1 (1-3); Calcium 8.2 mg/dL (8.6-10.3); Creatinine, Serum 0.69 mg/dL (0.51-0.95); Globulin 2.7 g/dL (2-4); Magnesium 1.8 mg/dL (1.9-2.7); Potassium 4.3 mmol/L (3.5-5.0); Total Bilirubin 1.1 mg/dL (0.2-1.0); Total Protein 5.8 g/dL (6.4-8.9); eGFR CKD-EPI 83.9 (>60)
[2024-03-29] MEDS ORDERED: Zosyn per Pharmacy NOTE FOLLOW UP SCH (07:00)
[2024-03-29] MEDS: Piperacillin/Tazobac 3.375 BAG 3.375 GM/100 ML BAG IV ONE (07:26)
[2024-03-29] MEDS: Magnesium Sulfate 2 gm BAG 2 GM/50 ML BAG IVPB ONE (08:01)
[2024-03-29] MEDS: Magnesium Hydroxide LIQ 30 ML UDC G TUBE SCH (08:02)
[2024-03-29] MEDS: Meropenem 1 GM PREMIX(*) 1 GM/50 ML BAG IV SCH (09:21)
[2024-03-29] MEDS: Digoxin IV 0.5 MG/2 ML AMP (0.25 MG/ML) IV SLOW PU ONE (09:21)
[2024-03-30 05:53] LABS: Hematocrit 26.9 % (35-45); Hemoglobin 8.7 g/dL (11.5-14.3); Mean Corpuscular Hemoglobin 26.2 pg (27-33); Mean Corpuscular Hgb Conc 32.3 g/dL (31-36); Mean Corpuscular Volume 81.1 fL (80-97); Mean Platelet Volume 8.8 fL (7.5-11.2); Platelet Count 317 10^3/uL (150-450); Red Blood Count 3.32 10^6/uL (3.63-4.92); White Blood Count 4.1 10^3/uL (3.8-11.8)
[2024-03-30 06:13] LABS: Calcium 7.3 mg/dL (8.6-10.3); Creatinine, Serum 0.66 mg/dL (0.51-0.95); Magnesium 2.2 mg/dL (1.9-2.7); Potassium 4.5 mmol/L (3.5-5.0); eGFR CKD-EPI 84.8 (>60)
[2024-03-30 07:37] LABS: ABS Lymphocytes 0.7 10^3/uL (1.0-4.8); ABS Monocytes 0.6 10^3/uL (0.0-0.9); ABS Neutrophils 2.8 10^3/uL (1.5-7.6); ABS Nucleated RBC 0.01 10^3/ul; Anisocytosis 1+; Eosinophil % 0.8 %; Lymphocyte % 17.1 %; Nucleated Red Blood Cells % 0.2 %/100WBC (0.0-0.8)
[2024-03-30] MEDS: Meropenem 1 GM PREMIX(*) 1 GM/50 ML BAG IV SCH (13:20)
[2024-03-31 06:25] LABS: ABS Eosinophils 0.2 10^3/uL (0.0-0.5); ABS Lymphocytes 0.8 10^3/uL (1.0-4.8); ABS Monocytes 0.6 10^3/uL (0.0-0.9); ABS Nucleated RBC 0.01 10^3/ul; Eosinophil % 4.3 %; Hemoglobin 8.7 g/dL (11.5-14.3); Lymphocyte % 22.6 %; Mean Corpuscular Hemoglobin 25.9 pg (27-33); Mean Corpuscular Hgb Conc 32.1 g/dL (31-36); Mean Corpuscular Volume 80.5 fL (80-97); Mean Platelet Volume 8.4 fL (7.5-11.2); Nucleated Red Blood Cells % 0.2 %/100WBC (0.0-0.8); Platelet Count 330 10^3/uL (150-450); Red Blood Count 3.35 10^6/uL (3.63-4.92); Red Cell Distribution Width 16.7 % (12-17); White Blood Count 3.5 10^3/uL (3.8-11.8)
[2024-03-31 06:41] LABS: Calcium 7.3 mg/dL (8.6-10.3); Creatinine, Serum 0.52 mg/dL (0.51-0.95); Potassium 4.3 mmol/L (3.5-5.0); eGFR CKD-EPI 89.9 (>60)
[2024-04-01 05:52] LABS: ABS Eosinophils 0.3 10^3/uL (0.0-0.5); ABS Lymphocytes 1.1 10^3/uL (1.0-4.8); ABS Monocytes 0.7 10^3/uL (0.0-0.9); ABS Neutrophils 2.9 10^3/uL (1.5-7.6); ABS Nucleated RBC 0.01 10^3/ul; Eosinophil % 5.8 %; Hematocrit 30.5 % (35-45); Hemoglobin 9.9 g/dL (11.5-14.3); Lymphocyte % 21.9 %; Mean Corpuscular Hemoglobin 25.9 pg (27-33); Mean Corpuscular Hgb Conc 32.4 g/dL (31-36); Mean Corpuscular Volume 79.9 fL (80-97); Mean Platelet Volume 8.3 fL (7.5-11.2); Nucleated Red Blood Cells % 0.1 %/100WBC (0.0-0.8); Platelet Count 366 10^3/uL (150-450); Red Blood Count 3.81 10^6/uL (3.63-4.92); Red Cell Distribution Width 16.8 % (12-17); White Blood Count 4.9 10^3/uL (3.8-11.8)
[2024-04-01 06:22] LABS: Calcium 8.1 mg/dL (8.6-10.3); Creatinine, Serum 0.56 mg/dL (0.51-0.95); Potassium 4.5 mmol/L (3.5-5.0); eGFR CKD-EPI 88.3 (>60)
[2024-04-02 05:06] LABS: ABS Eosinophils 0.3 10^3/uL (0.0-0.5); ABS Lymphocytes 1.1 10^3/uL (1.0-4.8); ABS Monocytes 0.6 10^3/uL (0.0-0.9); ABS Neutrophils 3.2 10^3/uL (1.5-7.6); Eosinophil % 5.2 %; Hematocrit 31.3 % (35-45); Lymphocyte % 20.7 %; Mean Corpuscular Hemoglobin 25.7 pg (27-33); Mean Corpuscular Volume 80.4 fL (80-97); Mean Platelet Volume 7.9 fL (7.5-11.2); Nucleated Red Blood Cells % 0.1 %/100WBC (0.0-0.8); Platelet Count 421 10^3/uL (150-450); White Blood Count 5.1 10^3/uL (3.8-11.8)
[2024-04-02 05:41] LABS: Calcium 7.8 mg/dL (8.6-10.3); Creatinine, Serum 0.47 mg/dL (0.51-0.95); Magnesium 2.2 mg/dL (1.9-2.7); Phosphorus 3.2 mg/dL (2.5-5.0); Potassium 4.8 mmol/L (3.5-5.0); eGFR CKD-EPI 92.1 (>60)
[2024-04-03] MEDS ORDERED: Senna TAB 8.6 mg TAB G TUBE PRN (11:56)
[2024-04-03] MEDS ORDERED: Magnesium Hydroxide LIQ 30 ML UDC G TUBE PRN (11:56)
[2024-04-03] MEDS ORDERED: Polyethylene Glycol 3350 17 GM PACKET FEED TUBE PRN (11:56)
[2024-04-04 06:29] LABS: ABS Eosinophils 0.3 10^3/uL (0.0-0.5); ABS Lymphocytes 1.1 10^3/uL (1.0-4.8); ABS Monocytes 0.6 10^3/uL (0.0-0.9); ABS Neutrophils 5.3 10^3/uL (1.5-7.6); ABS Nucleated RBC 0.01 10^3/ul; Hematocrit 31.5 % (35-45); Mean Corpuscular Hemoglobin 25.5 pg (27-33); Mean Corpuscular Hgb Conc 31.7 g/dL (31-36); Mean Corpuscular Volume 80.6 fL (80-97); Mean Platelet Volume 8.1 fL (7.5-11.2); Nucleated Red Blood Cells % 0.2 %/100WBC (0.0-0.8); Platelet Count 460 10^3/uL (150-450); Red Blood Count 3.91 10^6/uL (3.63-4.92); Red Cell Distribution Width 16.9 % (12-17); White Blood Count 7.3 10^3/uL (3.8-11.8)
[2024-04-04 06:49] LABS: Calcium 8.1 mg/dL (8.6-10.3); Creatinine, Serum 0.53 mg/dL (0.51-0.95); Magnesium 2.1 mg/dL (1.9-2.7); Potassium 4.7 mmol/L (3.5-5.0); eGFR CKD-EPI 89.5 (>60)
[2024-04-04] MEDS ORDERED: Lorazepam PYXIS KEY PRN ×2 (16:14→16:15)
[2024-04-04] MEDS ORDERED: LORazepam 2 mg VIAL 1 ml IV PUSH PRN (16:15)
[2024-04-04] MEDS: LORazepam 2 mg VIAL 1 ml IV PUSH ONE (16:48)
[2024-04-05 05:48] LABS: ABS Eosinophils 0.2 10^3/uL (0.0-0.5); ABS Monocytes 0.3 10^3/uL (0.0-0.9); ABS Neutrophils 4.9 10^3/uL (1.5-7.6); Eosinophil % 3.2 %; Hematocrit 30.6 % (35-45); Hemoglobin 9.6 g/dL (11.5-14.3); Lymphocyte % 15.9 %; Mean Corpuscular Hemoglobin 25.2 pg (27-33); Mean Corpuscular Hgb Conc 31.4 g/dL (31-36); Mean Corpuscular Volume 80.3 fL (80-97); Mean Platelet Volume 8.1 fL (7.5-11.2); Nucleated Red Blood Cells % 0.1 %/100WBC (0.0-0.8); Platelet Count 488 10^3/uL (150-450); Red Blood Count 3.81 10^6/uL (3.63-4.92); Red Cell Distribution Width 16.6 % (12-17); White Blood Count 6.6 10^3/uL (3.8-11.8)
[2024-04-05 06:14] LABS: Calcium 8.2 mg/dL (8.6-10.3); Creatinine, Serum 0.59 mg/dL (0.51-0.95); Potassium 4.8 mmol/L (3.5-5.0); eGFR CKD-EPI 87.2 (>60)
[2024-04-05 09:11] VITALS: BP 108/72
== END 2024-04-05 12:30 | DRG 872 ==
LOC: ED 10:34 → EDHOLD 10:34 → MED 12:50 → SUATTDRO 12:51 → OBSVTOIN 12:51 → MED 15:23
PROVIDERS: ADMIT Student in an Organized Health Care Education/Training Program; ATTEND Hospitalist